=== PATIENT | male | born 1945 | race Caucasian/White ===

== ENCOUNTER 2020-12-27 20:31 | Emergency (ER) | payer MEDICARE, SELFPAY ==
[2020-12-27 20:32] VITALS: BP 200/75; PULSE 79; RESP 15; TEMP 36.6; O2SAT 97; BMI 31.1
--- NOTE | 2020-12-27 21:09 | ED.RN ---
SOCIAL WORK CONSULT PLACED BY THIS RN DUE TO REPORT FROM EMS. EMS STATES LIVING CONDITIONS ARE POOR, DIRTY. THE PATIENT HAS BEEN EATING FOOD AND WALKING TO NEIGHBOR HOUSES ASKING FOR MONEY FOR FOOD. PER EMS REPORT HIS DIABETIC MEDICATION IS . PT LIVES BY HIMSELF WITH HIS SMALL DOG. HIS ONLY FAMILY MEMBER IS HIS SISTER THAT IS IN A DETENTION. HE COULD BENEFIT FROM OTHER COMMUNITY RESOURCES IF AVAILABLE.
--- NOTE | 2020-12-27 21:43 | ED.RN ---
neighbor offered to assist in any way per ems. [phone] ana dow rn [id number]
--- NOTE | 2020-12-27 22:26 | ED.RN ---
pt was given water to drink. he took a medication from a none readable medication bottle. pt was request to not take any more medications until he is evaluated by ed dr. ana dow, rn [id number]
--- NOTE | 2020-12-27 23:11 | EKG12_ITS ---
Test Reason : GENERAL ILLNESS Blood Pressure : / mmHG Vent. Rate : 065 BPM Atrial Rate : 357 BPM P-R Int : 000 ms QRS Dur : 072 ms QT Int : 404 ms P-R-T Axes : 091 010 037 degrees QTc Int : 420 ms Atrial fibrillation Abnormal ECG Confirmed by FREIDA KEN, LAUREN ([id number]), assignment desk editor SARAH THOMAS ([id number]) on 01/01/2021 10:49:34 AM Referred By: VANIA Confirmed By:ALETHEA GUAN MD
--- NOTE | 2020-12-27 23:11 | EDS_ITS ---
HPI History of Present Illness Chief Complaint: General Illness Detail of Chief Complaint: Weakness and suspected hypoglycemic episode Narrative Narrative: Patient presents to the emergency department via EMS. Patient apparently had an episode of weakness where he felt like his blood sugar was dropping. He had his neighbor opened up a can of food for him and the neighbor called EMS. On EMS arrival he was feeling improved and they were to sign him off but police apparently concerned about his living conditions and wanted him evaluated. Patient has no complaints currently and states that he feels so well he could take the nurses out dancing. Patient has no concerns about his living conditions and is able to care for himself. Patient states that he ran out of his Metformin yesterday but has a prescription waiting at the pharmacy for him. He denies chest pain or shortness of breath. He denies recent illness. He has had his Covid vaccine. Prior similar symptoms: Yes PFSH PFSH Home Medications hydrocodone-acetaminophen 1 tab PO Q6H PRN PRN #20 tablet 06/26/15 [Rx Last Taken Unknown] carvedilol 3.125 mg DAILY 12/27/20 [History Last Taken Unknown] glimepiride 2 mg DAILY 12/27/20 [History Last Taken Unknown] lisinopril 20 mg DAILY 12/27/20 [History Last Taken Unknown] Allergy/AdvReac Type Severity Reaction Status Date / Time codeine AdvReac Upset Verified 12/27/20 20:31 Stomach Social History Smoking Status: Never smoker ROS ROS ED Constitutional Constitutional ED: Reports systems reviewed and no addt'l complaints, except as documented; Denies body ache(s), change in weight or chills Eyes Eyes: Denies acute decrease in peripheral vision, change in vision, double vision or loss of vision ENT ENT ED: Reports none; Denies ear pain, lip swelling, loss taste/smell, neck pain, otalgia or sore throat Cardiovascular Cardiovascular: Reports none; Denies abdominal pain, chest pain with activity, leg edema, lightheadedness, palpitations, rapid heart rate or syncope Respiratory/Chest Respiratory/Chest: Reports none; Denies change in mental status, dry cough, dyspnea, hemoptysis, shortness of breath at rest or shortness of breath with exertion Gastrointestinal Gastrointestinal: Reports none; Denies abdominal pain, change in stool character, diarrhea, hematemesis, hematochezia, melena, rectal bleeding or vomiting Genitourinary Genitourinary ED: Reports none; Denies abdominal discomfort, anuria, dysuria, genital pain or polyuria Musculoskeletal Musculoskeletal: Reports none; Denies arthralgias, back pain, difficulty walking, extremity pain, muscle weakness or myalgias Integumentary Reports none; Denies abscess or rash Neurologic Neurologic: Reports none and weakness; Denies abnormal gait, confusion, focal weakness, frequent falls, headache(s), loss of vision, numbness, paresthesias, radicular pain or vertigo Psychiatric Psychiatric: Reports systems reviewed and no addt'l complaints, except as documented and none; Denies behavioral changes, confusion, difficulty concentrating, hallucinations, suicidal ideation, tactile hallucinations or visual hallucinations Endocrine Endocrinology: Denies none, cold intolerance, excessive sweating, fatigue or heat intolerance Hematologic/Lymphatic Hematologic/Lymphatic: Reports none; Denies anemia, easy bleeding or easy bruising Allergic/Immunologic Allergic/Immunologic ED: Denies as per HPI, none, lip swelling, mouth swelling, throat swelling, tongue swelling or hives EXAM Physical Exam Const Vital Signs: 12/27/20 20:32 12/27/20 23:49 12/27/20 23:56 Temperature 97.8 F 97.4 F L Temperature Source Temporal Temporal Pulse Rate 79 74 Respiratory Rate 15 15 Respiratory Effort Normal Non-Labored Blood Pressure 200/75 H 194/80 H Blood Pressure Mean 116 118 Pulse Ox 97 99 Oxygen Delivery Method Room Air Room Air Positive well nourished and well developed General Appearance ED: well developed and NAD HEENT Reports TM's clear and moist mucous membranes normocephalic and atraumatic; Negative for trauma or tenderness Tympanic Membrane ED: Yes TM's clear Eyes PERRL and EOMs intact bilaterally General Eye ED: Negative for pale conjunctiva or scleral icterus Neck no lymphadenopathy, supple and no JVD General: Negative for tenderness Chest Wall inspection of chest normal and palpation of chest normal Chest: Negative for tenderness Resp normal respiratory effort and clear to auscultation bilaterally Effort and Inspection: Negative for respiratory distress or pain with movement Auscultation: Negative for rhonchi, wheezes or diminished lung sounds Cardio regular rate, regular rhythm, S1 normal heart sound, S2 normal heart sound and no murmurs Peripheral Pulses: pulses 2+ throughout GI normal to inspection, nondistended, normoactive bowel sounds, soft to palpation, non-tender, non-distended and no masses Back/Spine no CVA tenderness and no thoracic nor lumbar tenderness Extremity normal to inspection General Extremety ED: Negative for edema General Extremity: Negative for edema Neuro oriented x3, CN's II-XII intact bilaterally, no sensory deficits noted and gait normal Sensorium / Orientation: awake, alert, oriented to person, oriented to place and oriented to time Motor Exam: strength 5/5 throughout and strength abnormal Psych mental status grossly normal Skin no rashes or lesions noted and no wounds MDM MDM MDM Narrative Medical decision making narrative: Patient noted to have an elevated troponin. Patient noted to have hypernatremia and worsening renal function. I recommended admission for further cardiac evaluation. I suspect patient may be having a non-STEMI. His weakness this evening may be related to cardiac etiology. Patient is absolutely refusing admission. Patient is ANO x3 and understands my concerns and is refusing admission. I spent significant time attempting to co nvince the patient to be admitted and he continues to refuse. Lab Data Attestation: I reviewed the patient's lab results. Labs: Laboratory Results - last 24 hr 12/27/20 12/27/20 23:45 23:45 WBC 7.7 RBC 4.12 L Hgb 12.3 L Hct 38.6 L MCV 93.7 MCH 29.9 MCHC 31.9 L RDW Std Deviation 48.6 H RDW Coeff of Riddhi 14.1 Plt Count 258 MPV 10.0 Immature Gran % (Auto) 0.400 Neut % (Auto) 72.6 H Lymph % (Auto) 15.[address] [facility] % (Auto) 7.4 Eos % (Auto) 3.9 Baso % (Auto) 0.5 Absolute Neuts (auto) 5.6 Absolute Lymphs (auto) 1.17 Nucleated RBC % 0 Sodium 147 H Potassium 4.0 Chloride 115 H Carbon Dioxide 26.0 Anion Gap 6 BUN 24 H Creatinine 1.72 H Estim Creat Clear Calc 34.80 Est GFR (MDRD) Af Amer 50 L Est GFR (MDRD) Non-Af 41 L BUN/Creatinine Ratio 14.0 Glucose 163 H Calcium 9.1 Troponin I High Sens 141 H* EKG Initial EKG: Attestation: I personally reviewed and interpreted this EKG as follows: Comments: Sinus rhythm with a ventricular rate of 65 bpm with occasional PACs. Discharge Plan Triage Chief Complaint: General Illness ED Provider: Ysabel Phelps Dx/Rx/DC Orders Clinical Impression: Non-ST elevated myocardial infarction, Acute hypernatremia, Acute renal insufficiency Instructions: Heart Attack Dc, Warning Signs of a Heart Attack, ED Renal Insufficiency Prescriptions: No Action hydrocodone-acetaminophen 1 TABLET tablet 1 tab PO Q6H PRN PRN (Reason: Pain) Qty: 20 RF: 0 carvedilol 3.125 mg tablet 3.125 mg DAILY RF: 0 lisinopril 20 mg tablet 20 mg DAILY RF: 0 glimepiride 2 mg tablet 2 mg DAILY RF: 0 Primary Care Provider: Hitesh Brown Referrals: Hitesh Brown DO [Primary Care Provider] - As soon as possible Disposition Disposition: Against Medical Advice
--- NOTE | 2020-12-27 23:21 | EKG12_ITS ---
Test Reason : GENERAL ILLNESS Blood Pressure : / mmHG Vent. Rate : 069 BPM Atrial Rate : 069 BPM P-R Int : 178 ms QRS Dur : 072 ms QT Int : 398 ms P-R-T Axes : 093 016 051 degrees QTc Int : 426 ms Normal sinus rhythm Normal ECG No previous ECGs available Confirmed by CONSTANCE KEN, FILIBERTO ([id number]), deputy editor in chief SARAH THOMAS ([id number]) on 01/02/2021 9:47:34 AM Referred By: VANIA Confirmed By:FILIBERTO NOLASCO MD
[2020-12-27] MEDS: 0.9% Normal Saline 1,000 ML 150 ML IV (23:47)
[2020-12-27 23:49] VITALS: BP 194/80; PULSE 74; RESP 15; TEMP 36.3; O2SAT 99
--- NOTE | 2020-12-27 23:49 | ED.RN ---
Dr Alejandro aware of elevated BP - no new orders
[2020-12-27 23:51] LABS: Absolute Lymphocyte Count 1.17 X10^3/uL (0.83-4.51); Absolute Neutrophil Count 5.6 X10^3/uL (2.0-7.7); Basophil# 0.04 X10^3/uL; Basophil% 0.5 % (0-1); Eosinophils% 3.9 % (0-5); Hematocrit 38.6 % (40-54); Hemoglobin 12.3 g/dL (13.0-16.5); Lymphocyte # 1.17 X10^3/ul (0.83-4.51); Lymphocyte % 15.2 % (19-41); Mean Corp Hgb Conc 31.9 g/dL (32-36); Mean Corpuscular Hgb 29.9 pg (27.0-32.0); Mean Corpuscular Volume 93.7 fL (80-94); Monocyte# 0.57 X10^3/uL; Monocyte% 7.4 % (0-10); NRBC Flagged by Analyzer 0 % (0-5); Neutrophil % 72.6 % (47-70); Platelet Count 258 K/mm3 (150-450); RBC Distribution Width CV 14.1 % (11.6-14.6); RBC Distribution Width SD 48.6 fl (35.1-43.9); Red Blood Count 4.12 M/mm3 (4.6-6.2); White Blood Count 7.7 K/mm3 (4.4-11.0)
[2020-12-28 00:20] LABS: Anion Gap 6 (5-15); BUN 24 mg/dL (7-18); Calcium,Total 9.1 mg/dL (8.5-10.1); Chloride 115 mmol/L (98-107); Creatinine, Serum 1.72 mg/dL (0.70-1.30); EST Glomerular Filtration Rate 41 mL/min (>60); Est Glom Filt Rate - Afr Amer 50 mL/min (>60); Glucose 163 mg/dL (74-106); Sodium Level 147 mmol/L (136-145); Troponin-I HS 141 pg/mL (3.0-78.0)
--- NOTE | 2020-12-28 00:47 | ED.RN ---
patient still wants to leave [facility] and states he understands he is leaving at his own risk and can returnb if he changes his mind for the rest of his cardiac work-up that he has declined at this time. Papers signed and calling for a ride home now.
[2020-12-28 00:48] VITALS: BP 180/78; PULSE 88; RESP 17; O2SAT 98
--- NOTE | 2020-12-28 16:56 | CM.ED ---
CHRISTIE Note CHRISTIE received call from Adult Protective Services (APS) Worker Fernando. She said that they had received APS report from neighbor regarding patient and concerns that had been reported. CHRISTIE reviewed chart and as this information is part of an open ongoing investigation and for continuity of care this keno writer/runner updated Fernando that patient was discharged A[facility] and their were concerns regarding patient's medical condition including cardiology. CHRISTIE updated SW Lead Sophia Lawrence. Fernando sent HIPPA Letter to this keno writer/runner stating that information can be released to APS. CHRISTIE sent HIPPA letter to CHRISTIE Lead for her review. CHRISTIE left voice mail for Fernando asking for letter on APS letterhead advising that APS is involved and that the information to be released is for continuity of care in regards to a current open APS investigation. CHRISTIE left email for Lenore, ED social work assistant, updating her regarding this situation. Keyana FLANAGAN
== END 2020-12-28 00:51 | disposition left against medical advice (07) ==
PROVIDERS: Emergency Provider Emergency Medicine; PCP Family Medicine
DX: I21.4 Non-ST elevation (NSTEMI) myocardial infarction (principal); E87.0 Hyperosmolality and hypernatremia; N28.9 Disorder of kidney and ureter, unspecified
CPT/HCPCS: 80048; 84484; 85025; 93005; 96360; 99284; J7030; A4216

== ENCOUNTER 2021-08-30 01:46 | Inpatient (IN) | payer MEDICARE, SELFPAY ==
[2021-08-30] VITALS (14 sets, daily range): BP systolic 144–186; BP diastolic 53–86; PULSE 64–96; RESP 15–18; TEMP 35.9–37.2; O2SAT 92–98; BMI 25.9; BMI 24.3
--- NOTE | 2021-08-30 01:52 | EKG12_ITS ---
Test Reason : FALL Blood Pressure : / mmHG Vent. Rate : 064 BPM Atrial Rate : 064 BPM P-R Int : 190 ms QRS Dur : 078 ms QT Int : 424 ms P-R-T Axes : 078 027 037 degrees QTc Int : 437 ms Normal sinus rhythm Normal ECG Confirmed by FILIBERTO NOLASCO MD ([id number]), film editor SARAH THOMAS ([id number]) on 09/03/2021 10:11:38 AM Referred By: Confirmed By:FILIBERTO NOLASCO MD
--- NOTE | 2021-08-30 01:53 | RAD_ITS ---
EXAM: XR LEFT HIP WITH PELVIS WHEN PERFORMED, 2 OR 3 VIEWS CLINICAL INDICATION: Injury/Pain TECHNIQUE: Two or three views of the left hip with pelvis when performed. This report was created using [employer] report generation technology. COMPARISON: None. FINDINGS: BONES/JOINTS: Intertrochanteric left hip fracture. Moderate degenerative changes of the hips. No destructive or sclerotic lesions. Note that overlapping bowel shadows may however obscure fine detail. Sacroiliac joint is unremarkable. No widening of the pubic symphysis. SOFT TISSUES: Unremarkable. No soft tissue swelling or gas. RAD/HIP, UNI W/ Pelvis 2-3 Views IMPRESSION: Intertrochanteric left hip fracture. Electronically Signed: Ed Escobar MD at 2:54 EDT ,
--- NOTE | 2021-08-30 01:54 | ED.VIS.FALL ---
HPI HPI - Fall History of Present Illness Chief Complaint: Fall Detail of Chief Complaint: Fall injuring left hip Informant: patient and EMS Occured/Mechanism Occurred: Hours Mechanism/Context: Yes same level fall and Yes trip Narrative: Patient was walking and tripped Fall from Height (ft): Standing position Usually ambulates: Without assistance Pain/Injury Pain Location: lower extremity (Points to the left groin region) Current Severity: Mild Maximum Severity: Severe Worsened by: Any type of movement Relieved by: Nothing Associated Symptoms Associated Symptoms: Positive for Loss of function and Inability to ambulate; Negative for Parasthesias, Weakness, Loss of consciousness and Amnesia Narrative Narrative: Patient is a 76-year-old male with history of type 2 diabetes and hypertension who presents after mechanical fall. He arrived by ambulance. His left lower extremity is externally rotated and shortened. He complains of pain in the left inguinal area. He does report hitting his head. Is not on anticoagulant. He was not dazed and there is no history of loss of conscious. Denies headache. He denies nausea or vomiting. He denies neck pain. He denies paresthesia, anesthesia motors upper or lower extremity. He denies cardiac or respiratory symptoms. He denies GI symptoms. Tetanus Immunization: Unknown Prior similar symptoms: No Recent Illness/Hospitalization: No PFSH PFSH Home Medications lisinopril 20 mg DAILY 12/27/20 [History Last Taken Unknown] glimepiride 4 mg DAILY 08/30/21 [History Last Taken Unknown] metformin 1,000 mg BID 08/30/21 [History Last Taken Unknown] Allergy/AdvReac Type Severity Reaction Status Date / Time codeine AdvReac Upset Verified 08/30/21 01:53 Stomach Family History (Updated 08/30/21 @ 03:[address] Olayinka Browning MD) Other Diabetes Surgical History no surgical history no surgical history Social History household members: other details: Resides at the [facility] Smoking Status: Never smoker substance use type: does not use ROS ROS ED Constitutional Constitutional ED: Denies chills, fever(s), subjective or sweats Eyes Eyes: Denies blurry vision, change in vision or diplopia ENT ENT ED: Denies ear pain, rhinorrhea or sore throat Cardiovascular Cardiovascular: Denies chest pain, orthopnea or palpitations Respiratory/Chest Respiratory/Chest: Denies cough, dyspnea, dyspnea on exertion or orthopnea Gastrointestinal Gastrointestinal: Denies abdominal pain, diarrhea, melena, nausea or vomiting Genitourinary Genitourinary ED: Denies dysuria, hematuria or urinary frequency Musculoskeletal Musculoskeletal: Reports other Details: Left hip pain ; Denies arthralgias, back pain, myalgias or neck pain Integumentary Denies Abrasions or rash Neurologic Neurologic: Denies headache(s), paresthesias or weakness Endocrine Endocrinology: Denies polydipsia, polyphagia or polyuria Hematologic/Lymphatic Hematologic/Lymphatic: Denies easy bleeding or easy bruising EXAM Physical Exam Const Vital Signs: 08/30/21 01:47 Temperature 96.7 F L Temperature Source Temporal Pulse Rate 64 Respiratory Rate 16 Blood Pressure 182/73 H Blood Pressure Mean 109 Pulse Ox 98 Oxygen Delivery Method Room Air Positive well nourished, well developed and unkempt General Appearance ED: unkempt, well developed and NAD HEENT Reports normocephalic and TM's clear HEENT Narrative: There is no clinical finding of basal skull fracture. There is no septal deviation hematoma. atraumatic; Negative for hematoma Tympanic Membrane ED: Yes TM's clear Eyes PERRL and EOMs intact bilaterally General Eye ED: Yes other Other Details: There is no subconjunctival hemorrhage. ; Negative for pale conjunctiva or scleral icterus Neck full ROM, no lymphadenopathy and supple Chest Wall inspection of chest normal and palpation of chest normal Resp normal respiratory effort, no retractions and clear to auscultation bilaterally Cardio regular rate, regular rhythm, S1 normal heart sound, S2 normal heart sound and no murmurs GI non-tender, non-distended and no masses Auscultation: normoactive bowel sounds Palpation: soft Back/Spine no CVA tenderness Cervical Spine: Negative for cervical spine tenderness Thoracic Spine / Upper Back: Negative for thoracic spinal tenderness Extremity normal capillary refill, no joint enlargement, no clubbing, cyanosis or edema, no calf tenderness and no pedal edema; Negative for normal to inspection or full ROM Extremity Narrative: DP pulses palpable bilaterally. The left lower extremity is shortened and externally rotated. Attempt at movement causes him pain in the inguinal area and is severe. Neuro oriented x3, CN's II-XII intact bilaterally and no focal motor deficits [place] Coma Scale: document GCS findings Spontaneous Obeys Commands Oriented 15 Sensorium / Orientation: alert Psych mental status grossly normal and thought process normal Appearance: unkempt Skin Lesions: no lesions Rashes: no rashes MDM MDM MDM Narrative Medical decision making narrative: Clinically patient has a fractured hip. Will obtain x-ray to determine if this is a femoral neck or intertrochanteric fracture. Will obtain appropriate blood work and testing for preoperative risk ratification. He was typed and screened. Lab Data Attestation: I reviewed the patient's lab results. Lab results narrative: Coags is remarkable for hemoglobin 11.3. Prior hemoglobin was 12.1.. CBC is unremarkable. Basic metabolic panel reveals an elevated creatinine of 6.8 which is patient's baseline and glucose of 225 with a normal CO2 and anion gap Radiography Diagnostic Testing: Clinical Impression(s) from Imaging Studies Hip/Pelvis X-Ray 08/30/21 01:53 IMPRESSION: Intertrochanteric left hip fracture. Electronically Signed: Ed Escobar MD at 2:54 EDT , Chest X-Ray 08/30/21 02:25 IMPRESSION: Mild enlargement of the cardiac silhouette. Electronically Signed: Ed Escobar MD at 2:50 EDT , Three-view x-ray of the left hip reveals an intertrochanteric fracture. There is no subluxation dislocation of the hip joint. There is no other acute abnormalities. This was interpreted by me at 0236. Single view portable chest x-ray reveals borderline cardiomegaly. Perihilar region is unremarkable. Lung parenchyma is unremarkable. There is no effusion, infiltrate or pneumothorax. Osseous structures are unremarkable. Call was placed to Dr. Davis. EKG Initial EKG: Attestation: I personally reviewed and interpreted this EKG as follows: Interpretation: Sinus Rhythm (The EKG is normal. Ventricular rate is 64. DC interval is 190 ms. QRS duration 78 ms. QT duration 424 ms. [place] is normal.) Discharge Plan Triage Chief Complaint: Fall ED Provider: Pepe Blankenship Dx/Rx/DC Orders Clinical Impression: Closed left hip fracture, Hypertension, Type 2 diabetes mellitus, Chronic kidney insufficiency, Anemia, unspecified Primary Care Provider: Hitesh Brown Disposition Disposition: Acute Care Hospital [facility]
[2021-08-30] MEDS: Morphine 4 MG/ML Syringe IV ×2 (02:13→03:54)
[2021-08-30] MEDS: Ondansetron 4 MG/2 ML Vial IV (02:15)
--- NOTE | 2021-08-30 02:25 | RAD_ITS ---
EXAM: XR CHEST, 1 VIEW CLINICAL INDICATION: Preoperative clearance TECHNIQUE: Frontal view of the chest. This report was created using [employer] report generation technology. COMPARISON: None. FINDINGS: LUNGS AND PLEURAL SPACES: Unremarkable. No consolidation or edema. No pneumothorax. No effusion. HEART: Mild enlargement of the cardiac silhouette. MEDIASTINUM: Central airways and mediastinal contour are unremarkable. BONES/JOINTS: Degenerative changes of the spine. SOFT TISSUES: Unremarkable. RAD/Chest 1 View (Portable) IMPRESSION: Mild enlargement of the cardiac silhouette. Electronically Signed: Ed Escobar MD at 2:50 EDT ,
[2021-08-30 03:20] LABS: Absolute Lymphocyte Count 1.26 X10^3/uL (0.83-4.51); Absolute Neutrophil Count 6.3 X10^3/uL (2.0-7.7); Basophil# 0.03 X10^3/uL; Basophil% 0.4 % (0-1); Eosinophil# 0.41 X10^3/uL; Eosinophils% 4.8 % (0-5); Hematocrit 34.3 % (40-54); Hemoglobin 11.3 g/dL (13.0-16.5); Lymphocyte # 1.26 X10^3/ul (0.83-4.51); Lymphocyte % 14.8 % (19-41); Mean Corp Hgb Conc 32.9 g/dL (32-36); Mean Corpuscular Hgb 29.8 pg (27.0-32.0); Mean Corpuscular Volume 90.5 fL (80-94); Monocyte# 0.47 X10^3/uL; Monocyte% 5.5 % (0-10); NRBC Flagged by Analyzer 0 % (0-5); Neutrophil # 6.29 X10^3/uL (2.7-7.7); Neutrophil % 73.8 % (47-70); Platelet Count 230 K/mm3 (150-450); RBC Distribution Width CV 13.3 % (11.6-14.6); RBC Distribution Width SD 43.5 fl (35.1-43.9); Red Blood Count 3.79 M/mm3 (4.6-6.2); White Blood Count 8.5 K/mm3 (4.4-11.0)
--- NOTE | 2021-08-30 03:31 | PCM.HP.STD ---
HPI - General General Date of Admission: 08/30/21 HPI Narrative YASH WILCOX, is a 76 M with a significant history of hypertension, and diabetes who lives at the [facility] presented to the emergency department with a fall. Reportedly patient was going to use the bathroom at night to afternoon nanny on the day of presentation. He lost his balance and fell. He fell on his left side. He developed pain at the left hip after the fall. He report that at baseline he is able to walk by himself with no assistive device. [facility] Home Medications lisinopril 20 mg DAILY 12/27/20 [History Last Taken Unknown] glimepiride 4 mg DAILY 08/30/21 [History Last Taken Unknown] metformin 1,000 mg BID 08/30/21 [History Last Taken Unknown] Allergy/AdvReac Type Severity Reaction Status Date / Time codeine AdvReac Upset Verified 08/30/21 01:53 Stomach Family History Other Diabetes Surgical History no surgical history no surgical history Social History household members: other details: Resides at the [facility] Smoking Status: Never smoker substance use type: does not use ROS ROS Narrative Pertinent positives and pertinent negatives as noted in HPI. All other systems were reviewed and are negative. Vital Signs Vital Signs Vital Signs: 08/30/21 01:47 08/30/21 03:25 Temperature 96.7 F L 98.1 F Temperature Source Temporal Temporal Pulse Rate 64 72 Respiratory Rate 16 16 Blood Pressure 182/73 H 172/73 H Blood Pressure Mean 109 106 Pulse Ox 98 96 Oxygen Delivery Method Room Air Room Air Weight Weight: 77.6 kg Body Mass Index (BMI) 25.9 Physical Exam Narrative Physical exam: General: Well-nourished, well-developed. Head: Normocephalic, atraumatic, no tenderness Eyes: Vision is grossly intact. EOMI ENT, no trauma, moist mucous membranes, no rhinorrhea Neck: Nontender, full range of motion. CVS: Regular rate and rhythm. S1-S2 present. No murmur, gallop or rub. Respiratory : clear to auscultation bilaterally, chest wall nontender, no wheezing Abdomen: Soft, nontender, nondistended, normal bowel sounds, no masses : Deferred Back: Nontender, no CVA tenderness. Extremities: Tender left hip. Nontender right hip. No grossly visible trauma on bilateral lower extremities. Skin: Normal color, no trauma, abrasions Neuro: Alert, oriented, cranial nerves II through XII grossly intact. Psychiatry: Normal mood. Normal affect. Not depressed. Not anxious. Results Lab / Micro Data Result Diagrams: 08/30/21 03:05 08/30/21 03:05 Labs: Laboratory Results - last 24 hr 08/30/21 03:05: WBC 8.5, RBC 3.79 L, Hgb 11.3 L, Hct 34.3 L, MCV 90.5, MCH 29.8, MCHC 32.9, RDW Std Deviation 43.5, RDW Coeff of Riddhi 13.3, Plt Count 230, MPV 10.0, Immature Gran % (Auto) 0.700, Neut % (Auto) 73.8 H, Lymph % (Auto) 14.8 L, [place] % (Auto) 5.5, Eos % (Auto) 4.8, Baso % (Auto) 0.4, Absolute Neuts (auto) 6.3, Absolute Lymphs (auto) 1.26, Nucleated RBC % 0 Radiology Impression Hip/Pelvis X-Ray 08/30/21 01:53 IMPRESSION: Intertrochanteric left hip fracture. Electronically Signed: Ed Escobar MD at 2:54 EDT Reading Location ID and State: [address] [place] [address] Tel , Service support , Chest X-Ray 08/30/21 02:25 IMPRESSION: Mild enlargement of the cardiac silhouette. Electronically Signed: Ed Escobar MD at 2:50 EDT Reading Location ID and State: [facility] / [employer] Tel , Service support , Assessment & Plan Assessment/Plan (1) Closed left hip fracture: QUALIFIERS: Encounter type: initial encounter Qualified Code(s): S72.002A - Fracture of unspecified part of neck of left femur, initial encounter for closed fracture PLAN: Closed intertrochanteric left hip fracture. Hip/pelvis x-ray showed left intertrochanteric hip fracture. Hip/pelvis x-ray was visualized and independent interpreted and I agree radiology interpretation. Chest x-ray was visualized and independent interpreted. I agree with radiologist interpretation of mild enlargement of the cardiac silhouette. Emergent department doctor discussed the case with Dr. Davis. Inpatient consult for orthopedic surgery. Morphine IV and oxycodone as needed ordered. Tylenol as needed ordered. Bowel protocol and antiemetics IV ordered. Keep n.p.o. While n.p.o. lactated Ringer's ordered. Check vitamin D level and vitamin B12. Preoperative EKG unremarkable ACS NSQIP surgical risk calculator with below surgical risk for cardiopulmonary complications. PT and OT consult. Orthopedic consult. Hypertension Blood pressure is not within goal Lisinopril continued. As needed hydralazine ordered. Trend blood pressure and adjust blood pressure medications. Diabetes mellitus with nephropathy Patient with hyperglycemia on presentation Home glipizide and metformin held. Accu-Chek QA CHS with correction scale insulin ordered. CKD stage IIIb Stable Trend BMP. Chronic anemia Hemoglobin on presentation was 11.3. His hemoglobin on 12/27/2020 was 12.3. Stable Trend CBC DVT prophylaxis SCDs ordered Charges/Coding Visit Charges Inpatient E&M: 95457 Init Hosp L3
[2021-08-30 03:35] LABS: Prothrombin Time (Protime)PT. 12.8 SECONDS (11.7-14.9)
[2021-08-30 03:37] LABS: Anion Gap 6 (5-15); BUN 27 mg/dL (7-18); BUN/Creat Ratio 16.1 RATIO (10-20); Calcium,Total 8.9 mg/dL (8.5-10.1); Chloride 107 mmol/L (98-107); Creatinine, Serum 1.68 mg/dL (0.70-1.30); EST Glomerular Filtration Rate 42 mL/min (>60); Est Glom Filt Rate - Afr Amer 51 mL/min (>60); Estimated Creatinine Clearance 35.06 ml/min; Glucose 225 mg/dL (74-106); Sodium Level 139 mmol/L (136-145)
[2021-08-30] MEDS: Lactated Ringers 1,000 ML 60 ML IV ×2 (05:10→22:42)
[2021-08-30] MEDS: 0.9% Saline Lock 10 ML Syringe IV ×3 (05:10→15:42)
[2021-08-30] MEDS: Morphine 2 MG/ML Syringe IV ×3 (05:10→14:50)
[2021-08-30] MEDS: Insulin Lispro 100 UNIT/ML INSULN.PEN SC ×3 (06:13→22:46)
--- NOTE | 2021-08-30 06:37 | RAD_ITS ---
STUDY: Intraoperative Fluoroscopic series LEFT HIP REASON FOR EXAM: Male, 76 years old. ORIF, HIP, GAMMA NAIL TECHNIQUE: 11 fluoroscopic views of the hip. COMPARISON: None. FINDINGS: 83.3 seconds fluoroscopy time reported. 11 fluoroscopic images are provided evaluating the left hip during a open reduction internal fixation. The initial image demonstrates a fracture of the proximal left femur. There is progressive instrumentation with the final study demonstrating a orthopedic nail and intramedullary hakan transfixing the fracture. RAD/Hip 1 view with Pelvis IMPRESSION: Open reduction internal fixation of the left femur fracture in progress. Electronically Signed: Sammie Fulton MD at 4:49 EDT ,
--- NOTE | 2021-08-30 06:51 | CON.PCM.OR_ITS ---
HPI Consult Data Date of Consult: 08/30/21 HPI Narrative HPI Narrative: YASH WILCOX, is a 76 M who presents To [facility] emergency department after mechanical fall from standing height at the [facility] where he resides onto his left side. Denies any head injury or loss of consciousness. Reported no antecedent left hip or groin pain. Community ambulator without assistive device. Denies any associated injury. Reports pain is left hip otherwise denies any complaints. Denies fevers, chills, nausea vomiting, chest pain or shortness of breath. Past medical history significant for hypertension and diabetes mellitus. He states his blood sugar runs in the 200s typically. [facility] Medical History (Updated 08/30/21 @ 04:31 by Freddy Perez) Diabetes Hypertension Home Medications lisinopril 20 mg PO DAILY 12/27/20 [History Last Taken 08/29/21] glimepiride 4 mg PO DAILY 08/30/21 [History Last Taken 08/29/21] metformin 1,000 mg PO BID 08/30/21 [History Last Taken 08/29/21] Allergy/AdvReac Type Severity Reaction Status Date / Time codeine AdvReac Upset Verified 08/30/21 01:53 Stomach Family History Other Diabetes Surgical History no surgical history Social History household members: other details: Resides at the [facility] Smoking Status: Never smoker substance use type: does not use ROS ROS Narrative 12 point review of systems obtained, negative unless otherwise noted in HPI. Vital Signs Vital Signs Vital Signs: 08/30/21 01:47 08/30/21 03:25 08/30/21 03:46 Temperature 96.7 F L 98.1 F Temperature Source Temporal Temporal Pulse Rate 64 72 69 Respiratory Rate 16 16 15 Respiratory Effort Respiratory Depth Respiratory Pattern Blood Pressure 182/73 H 172/73 H 168/65 H Blood Pressure Mean 109 106 99 Blood Pressure Source Blood Pressure Position Blood Pressure Location Pulse Ox 98 96 95 Oxygen Delivery Method Room Air Room Air Room Air 08/30/21 04:19 08/30/21 04:26 Temperature 96.9 F L Temperature Source Temporal Pulse Rate 75 Respiratory Rate 18 Respiratory Effort Normal Respiratory Depth Normal Respiratory Pattern Normal Blood Pressure 185/80 H Blood Pressure Mean 115 Blood Pressure Source Monitor Blood Pressure Position Semi-Fowlers Blood Pressure Location Right Arm Pulse Ox 97 Oxygen Delivery Method Room Air Room Air Weight Weight: 160 lb 0.889 oz Body Mass Index (BMI) 24.3 Physical Exam Narrative General -A&Ox3, NAD, appears stated age. Vital signs stable, afebrile. Respiratory -normal work of breathing, no intercostal retractions. CV -pulses regular, brisk capillary refill ?4 limbs. Abdomen-soft, nontender, nondistended. No guarding, rigidity, rebound tenderness. Musculoskeletal/neurologic -full range of motion nontender throughout bilateral upper extremities, right lower extremity with full sensation and strength in all dermatomes and myotomes. No midline cervical tenderness. Left lower extremity-no obvious deformity. Pain with logroll of the left lower extremity. Nontender throughout the left knee femoral shaft, tibial shaft and left foot/ankle. Brisk capillary refill. Sensation intact light touch L3-S1 dermatomes. DF, PF, EHL intact. DP, PT 2+. Pelvis is stable, nontender. Skin is intact without lacerations, abrasions. No ecchymosis noted. Lab / Micro Data Result Diagrams: 08/30/21 03:05 08/30/21 03:05 Labs: Laboratory Results - last 24 hr 08/30/21 03:05: Blood Type O POSITIVE, Antibody Screen NEGATIVE 08/30/21 03:05: WBC 8.5, RBC 3.79 L, Hgb 11.3 L, Hct 34.3 L, MCV 90.5, MCH 29.8, MCHC 32.9, RDW Std Deviation 43.5, RDW Coeff of Riddhi 13.3, Plt Count 230, MPV 10.0, Immature Gran % (Auto) 0.700, Neut % (Auto) 73.8 H, Lymph % (Auto) 14.8 L, [place] % (Auto) 5.5, Eos % (Auto) 4.8, Baso % (Auto) 0.4, Absolute Neuts (auto) 6.3, Absolute Lymphs (auto) 1.26, Nucleated RBC % 0 08/30/21 03:05: PT 12.8, INR 1.0, APTT 24.0 L 08/30/21 03:05: Sodium 139, Potassium 4.0, Chloride 107, Carbon Dioxide 26.0, Anion Gap 6, BUN 27 H, Creatinine 1.68 H, Estim Creat Clear Calc 35.06, Est GFR (MDRD) Af Amer 51 L, Est GFR (MDRD) Non-Af 42 L, BUN/Creatinine Ratio 16.1, Glucose 225 H, Calcium 8.9 Radiology Impression Hip/Pelvis X-Ray 08/30/21 01:53 IMPRESSION: Intertrochanteric left hip fracture. Electronically Signed: Ed Escobar MD at 2:54 EDT Reading Location ID and State: [facility] / [employer] Tel , Service support , Chest X-Ray 08/30/21 02:25 IMPRESSION: Mild enlargement of the cardiac silhouette. Electronically Signed: Ed Escobar MD at 2:50 EDT Reading [facility] [employer] Tel , Service support , Assessment & Plan Assessment/Plan (1) Closed left hip fracture: QUALIFIERS: Encounter type: initial encounter Qualified Code(s): S72.002A - Fracture of unspecified part of neck of left femur, initial encounter for closed fracture PLAN: Patient sustained a left intertrochanteric proximal femur fracture. -Closed, neurovascularly intact -Isolated injury -Recommending surgical intervention in the form of left femur cephalomedullary nailing -I discussed the procedure-its risks, benefits and alternative. Risks include but are not limited to bleeding, infection, loss of life or limb, risk of anesthesia, persistent pain or disability, need for additional surgery, no nunion, malunion, failure of orthopedic hardware, neurovascular injury, DVT or PE. Patient expressed understanding these risks and wished proceed with surgery. -Maintenance IV fluids, clear liquid diet after midnight n.p.o. at 2 hours prior to surgery -Type and screen -2 g Ancef on-call to the OR -Bedrest, heel protectors -Plan to proceed with surgery later today when OR becomes available Thank you for this consultation.
[2021-08-30 07:05] LABS: Bedside Glucose 245 mg/dL (74-106)
[2021-08-30] MEDS: oxyCODONE 5 MG Tablet PO ×2 (07:53→12:09)
[2021-08-30] MEDS: Acetaminophen 500 MG Tablet 1000 MG PO ×2 (07:54→14:50)
[2021-08-30 08:12] LABS: AST(SGOT) 20 U/L (15-37); Alanine Aminotransfer ALT/SGPT 24 U/L (16-61); Albumin, Serum 3.1 g/dL (3.2-5.0); Alkaline Phosphatase 125 U/L (45-117); Anion Gap 7 (5-15); BUN 26 mg/dL (7-18); BUN/Creat Ratio 15.4 RATIO (10-20); Chloride 107 mmol/L (98-107); Creatinine, Serum 1.69 mg/dL (0.70-1.30); EST Glomerular Filtration Rate 42 mL/min (>60); Est Glom Filt Rate - Afr Amer 51 mL/min (>60); Estimated Creatinine Clearance 34.85 ml/min; Globulin 3.2 g/dL (2.2-4.2); Glucose 279 mg/dL (74-106); Potassium 4.4 mmol/L (3.5-5.1); Protein, Total 6.3 g/dL (6.4-8.2); Sodium Level 138 mmol/L (136-145)
[2021-08-30] MEDS: Lisinopril 20 MG Tablet PO (08:18)
[2021-08-30 08:30] LABS: Vitamin D,25 Hydroxy 29.2 ng/mL
[2021-08-30 08:34] LABS: Hemoglobin A1c 8.7 % (3.8-5.6)
[2021-08-30 11:33] LABS: Color, Urine Straw (Yellow); Glucose, Dipstick Normal (Normal); Ketone-Dipstick Negative (Negative); Leukocyte Esterase-Dipstick Negative /ul (Negative); Nitrite-Dipstick Negative (Negative); Occult Blood-Urine Negative /ul (Negative); Protein-Dipstick 30 mg/dl (Negative); Urine Bilirubin Dipstick Negative (Negative); Urine Clarity Clear (Clear); Urine Urobilinogen Normal (Normal)
[2021-08-30] MEDS: hydrALAZINE 20 MG/ML Vial 10 MG IV (12:33)
[2021-08-30 12:55] LABS: Bedside Glucose 324 mg/dL (74-106)
--- NOTE | 2021-08-30 13:33 | CPS ---
started by nursing
--- NOTE | 2021-08-30 13:34 | CPS ---
started by nursing
--- NOTE | 2021-08-30 15:20 | CHAPLAIN ---
Type of Pastoral Visit _x__ Initial Visit ___ Follow-up Visit ___ On-call Visit ___ General Patient Visit ___ Spiritual Assessment ___ Family Conference ___ Bereavement ___ Rapid Response ___ Code Blue ___ Other (describe below) Pastoral Care Referral From _x__ Patient ___ Family ___ Nurse ___ Physician ___ Automatic Embroidery Machine Tender ___ Aluminum Container Tester ___ Other (describe below) Sacrament/Intervention ___ Active listening ___ Anointing ___ Roman Catholic ___ Bereavement ___ Communion ___ Karen exploration ___ ___ Life review ___ Prayer ___ Reconciliation ___ Sacrament of Sick _x__ Supportive presence ___ Wedding ___ Other (describe below) Pastoral Comments patient is awake but drifts off to sleep during visit; pt states that he is having surgery for broken hip, admits that he is in discomfort and would like to be repositioned; assisted with call button and request for repositioning; pt welcomes a pre surgery prayer, pt drifts off to sleep again
--- NOTE | 2021-08-30 15:53 | CASEMGMT ---
Social Work Consult: prison Referral source: Dr. Arizmendi Met with patient in room. Introduced self and social worker psychiatric role. Patient agreeable to speak with this social worker psychiatric. This social worker psychiatric broached conversation about correction placement for patient. Patient currently lives at [facility]. This social worker psychiatric provided patient with list of correction facilities that are in network with patient insurance. Patient kept falling asleep during conversation. Patient to have surgery later today. This social worker psychiatric encouraged patient to look over list and social work will follow up with patient tomorrow on discharge plan. Patient is not sure of which correction. Patient only request is to stay local to [place] or somewhere in [place]. Social Work to continue to follow. Atif Vargas MSW, ALEJANDRO
[2021-08-30 18:20] LABS: Bedside Glucose 216 mg/dL (74-106)
--- NOTE | 2021-08-30 18:39 | CON.PCM.UR_ITS ---
Assessment & Plan Assessment/Plan (1) Urethral stricture unspecified: PLAN: Simple Terrell catheterization was attempted but not successful off to try with a dilator kit. HPI Consult Data Date of Consult: 08/30/21 HPI Narrative HPI Narrative: YASH WILCOX, is a 76 M who presents with a fractured left hip he has incontinence of urine because he is immobile. Nursing staff attempted to place a catheter I was consulted to see the patient regarding the catheter placement [facility] Medical History (Updated 08/30/21 @ 18:[address] Malvin Hsu MD) Diabetes Hypertension Home Medications lisinopril 20 mg PO DAILY 12/27/20 [History Last Taken 08/29/21] glimepiride 4 mg PO DAILY 08/30/21 [History Last Taken 08/29/21] metformin 1,000 mg PO BID 08/30/21 [History Last Taken 08/29/21] Allergy/AdvReac Type Severity Reaction Status Date / Time codeine AdvReac Upset Verified 08/30/21 01:53 Stomach Family History Other Diabetes Surgical History no surgical history Social History household members: other details: Resides at the [facility] Smoking Status: Never smoker substance use type: does not use ROS Constitutional Constitutional: Denies chills, fever(s) or malaise Eyes Eyes: Denies blurry vision or change in vision ENT HEENT: Reports none Cardiovascular Cardiovascular: Denies chest pain or palpitations Respiratory/Chest Respiratory/Chest: Denies cough or shortness of breath with exertion Gastrointestinal Gastrointestinal: Denies abdominal pain, constipation or diarrhea Musculoskeletal Musculoskeletal: Denies back pain, joint stiffness or joint swelling Integumentary Integumentary: Denies dry skin, jaundice, lesions or rash Neurologic Neurologic: Denies confusion, syncope or weakness Psychiatric Psychiatric: Reports none; Denies anxiety or depression Endocrine Endocrinology: Denies excessive sweating, fatigue or flushing Hematologic/Lymphatic Hematologic/Lymphatic: Denies anemia, easy bleeding or easy bruising Physical Exam Const alert and oriented x3 General Appearance: cooperative HEENT normocephalic, head/scalp atraumatic, EAC's normal and TM's normal bilaterally Eyes PERRL and EOMs intact bilaterally Pupil: sluggish Neck no lymphadenopathy, supple and no JVD General: trachea midline Lymph Lymphatic: no lymphadenopathy noted, lymphedema and lymphadenopathy Resp normal respiratory effort, normal air movement and clear to auscultation bilaterally Cardio regular rate, regular rhythm and peripheral pulses 2+ throughout GI soft to palpation, non-tender and non-distended Extremity normal capillary refill and no clubbing, cyanosis or edema General Extremity: no tenderness to palpation of joints or extremities Skin no rashes or lesions noted General Skin Exam: turgor normal Lesions: no lesions Rashes: no rashes Neuro CN's II-XII intact bilaterally Speech: speech normal Motor Exam: strength 5/5 throughout; Negative for general weakness Psych thought process normal, cooperative and affect normal Appearance: appropriate Lab / Micro Data Result Diagrams: 08/30/21 03:05 08/30/21 07:30 Labs: Laboratory Results - last 24 hr 08/30/21 03:05: Blood Type O POSITIVE, Antibody Screen NEGATIVE 08/30/21 03:05: WBC 8.5, RBC 3.79 L, Hgb 11.3 L, Hct 34.3 L, MCV 90.5, MCH 29.8, MCHC 32.9, RDW Std Deviation 43.5, RDW Coeff of Riddhi 13.3, Plt Count 230, MPV 10.0, Immature Gran % (Auto) 0.700, Neut % (Auto) 73.8 H, Lymph % (Auto) 14.8 L, [place] % (Auto) 5.5, Eos % (Auto) 4.8, Baso % (Auto) 0.4, Absolute Neuts (auto) 6.3, Absolute Lymphs (auto) 1.26, Nucleated RBC % 0 08/30/21 03:05: PT 12.8, INR 1.0, APTT 24.0 L 08/30/21 03:05: Sodium 139, Potassium 4.0, Chloride 107, Carbon Dioxide 26.0, Anion Gap 6, BUN 27 H, Creatinine 1.68 H, Estim Creat Clear Calc 35.06, Est GFR (MDRD) Af Amer 51 L, Est GFR (MDRD) Non-Af 42 L, BUN/Creatinine Ratio 16.1, Glucose 225 H, Calcium 8.9 08/30/21 03:05: Hemoglobin A1c 8.7 H 08/30/21 06:09: POC Glucose 245 H 08/30/21 07:30: Sodium 138, Potassium 4.4, Chloride 107, Carbon Dioxide 24.0, Anion Gap 7, BUN 26 H, Creatinine 1.69 H, Estim Creat Clear Calc 34.85, Est GFR (MDRD) Af Amer 51 L, Est GFR (MDRD) Non-Af 42 L, BUN/Creatinine Ratio 15.4, Glucose 279 H, Calcium 9.0, Total Bilirubin 0.30, AST 20, ALT 24, Alkaline P hosphatase 125 H, Total Protein 6.3 L, Albumin 3.1 L, Globulin 3.2, Albumin/Globulin Ratio 1.0 08/30/21 07:30: Vitamin D 25-Hydroxy 29.2 08/30/21 11:00: Urine Color Straw, Urine Clarity Clear, Urine pH 6.0, Ur Specific [place] 1.010, Urine Protein 30 H, Urine Glucose (UA) Normal, Urine Ketones Negative, Urine Occult Blood Negative, Urine Nitrite Negative, Urine Bilirubin Negative, Urine Urobilinogen Normal, Ur Leukocyte Esterase Negative 08/30/21 12:03: POC Glucose 324 H 08/30/21 17:04: POC Glucose 216 H Radiology Impression Hip/Pelvis X-Ray 08/30/21 01:53 IMPRESSION: Intertrochanteric left hip fracture. Electronically Signed: Ed Escobar MD at 2:54 EDT Reading Location ID and State: [address] [place] [address] Tel , Service support , Chest X-Ray 08/30/21 02:25 IMPRESSION: Mild enlargement of the cardiac silhouette. Electronically Signed: Ed Escobar MD at 2:50 EDT ,
--- NOTE | 2021-08-30 18:41 | PCM.OPRPT ---
Report of Operation Date of Procedure: 08/30/21 Pre-Operative Diagnosis: Urethral stricture Post-Operative Diagnosis: Dilation urethral stricture Surgery/Procedure Performed:: Placement of Schumacher catheter 16 Korean Description of Surgical Findings:: Patient was a to have surgery for his hip the penis was prepped and draped in usual sterile fashion I inserted inserted lidocaine jelly into the urethra through the kit and numbed the urethra I then used a Glidewire to advanced past the urethral stricture under manual guidance. Once this was through then I used the dilators in the kit to dilate the urethral stricture and then over this I placed a 16 Korean catheter into the bladder clear return of yellow urine 10 cc in the balloon. The patient will the now released to orthopedic surgery to proceed with their hip surgery. Surgeon: nikky Type of Anesthesia: Local Drains: 16 fr schumacher Admit VTE Documentation VTE Present on Admission: No VTE Mechan Device Prophylaxis: SCD's VTE Pharm Prophylaxis ordered?: No
[2021-08-30] MEDS: Cefazolin 2 GM in 0.9% Normal Saline 100 ML IV (19:35)
--- NOTE | 2021-08-30 21:06 | OP.PCM_ITS ---
Report of Operation Date of Procedure: 08/30/21 Description of Surgical Findings:: Preoperative diagnosis: Left int ertrochanteric proximal femur fracture Postoperative diagnosis: Left intertrochanteric proximal femur fracture Procedure: Treatment of intertrochanteric hip fracture with intramedullary nail left femur Surgeon: Kervin Davis DO Anesthesia: General endotracheal Anesthesiologist: Dr. Rosario Complications: None Drains: None Estimated blood loss: 100 cc Urinary output: None recorded IV fluids: Per anesthesia record Specimens: None Surgical implants: [place] Gamma3 Cephalomedullary Nail 125 degree 11 mm x 400 mm left, 10.5 mm x 110 mm lag screw, Interlocking screws size 5 mm x 60 mm, 5 mm x 47.5 mm Surgical indications: This is a 76 male who presents presented to [facility] emergency department after a mechanical fall last evening. Patient resides at the [facility] He was brought to [facility] emergency department where x-rays in the emergency department revealed a left comminuted intertrochanteric proximal femur fracture. Or thopedics was consulted for surgical recommendations.I recommended cephalomedullary nail fixation of her left intertrochanteric proximal femur fracture. He was admitted and preoperatively optimized by the hospitalist service. I discussed the procedure with the patient. The risks, benefits, alternatives to procedure reviewed with the patient. The risks of the surgery included bleeding, infection, loss of life or limb, malunion, nonunion, damage to vital structures, neurovascular injury, failure of orthopedic hardware, need for additional surgery, persistent pain or disability, risk of anesthesia. The patient expressed understanding of these risks and agreed to proceed with surgery. Blood consent was also obtained. Description of procedure: Patient was seen in preoperative holding area. He was identified by name, medical record number, date of . The operative extremity was marked with a surgical marker. We confirmed informed consent with the patient and questions were answered to his satisfaction. Patient was brought to the operative suite, and general anesthesia was induced on his hospital bed. Endotracheal tube was secured. After adequate anesthesia, patient was transferred to a fracture table with all bony prominences being well-padded. A perineal post was placed to secure the patient on the table. We then applied a ski boot which was well-padded to the operative extremity. The well leg was dropped into extension and secured to the axial post of the fracture table with a pillow and Coban. The left arm was brought across patient's chest with a blanket on her chest. We then performed a closed reduction maneuver with external rotation, traction, internal rotation and adduction. Fluoroscopic images were obtained. Fracture appeared to be acceptably reduced following closed reduction. We then prepped and draped the left lower extremity in normal, sterile orthopedic fashion. A timeout was performed with all parties in attendance in agreement with the side, site, and operation be performed. 2 g Ancef was administered prior to incision. No concerns were voiced and we elected to proceed. I first used fluoroscopy to katlyn the level of the fracture and planned incision for insertion of the cephalomedullary nail device. In line with the long axis of the femur, 4 fingerbreadths proximal to the tip of the greater trochanter, a full-thickness skin incision was planned.. Skin was sharply incised with 10 blade scalpel, carried into the subcutaneous tissues. The IT band was encountered and split in planned trajectory of the nail placement. The greater trochanter was then able to be palpated digitally. I then placed a threaded guidewire just medial to the tip of the greater trochanter and in the anterior third of it on the lateral. Opening reamer was then placed over top of the guidewire after placement was confirmed on C arm. A ball-tipped guidewire then was passed into the intramedullary canal after reamer was removed. We used C arm to confirm our placement within the bone. We then sequentially reamed to a final diameter of 12.5 mm using flexible reamers. Reduction was again confirmed. Depth gauge was used to measure the length of the ball-tipped guidewire from the superior pole of patella to be 400 mm. Reamers were removed. Nail was assembled on the back table. We placed it over the ball-tipped guidewire and impacted to an appropriate depth. Rotation was confirmed on the lateral. Drill sleeve was placed through the targeting guide. We drilled the pin for the lag screw at an appropriate position and depth, tip to apex distance less than 25 mm on AP and lateral combined. Depth gauge was used to measure the length of the screw, 110 mm. We then used the cannulated drill to drill to an appropriate depth. Drill was removed, drill pin left in place. Lag screw was placed over top of the drill pin and tightened to an appropriate depth. Setscrew was then placed and tightened, and then turned back a quarter turn to allow the lag screw to slide. We then turned our attention distally to insert 2 interlocking screws via perfect [place] technique. C-arm was brought in perpendicular to the limb to o btain perfect [place] images. Stab incisions were made along the lateral distal aspect of the femur. I drilled bicortically ensuring passage through the interlocking slots of the nail. Depth gauge was used to measure length of interlocking screws. Interlocking screws were then placed with excellent cortical purchase. Appropriate positioning and size were confirmed on orthogonal fluoroscopy. Instruments were removed as well as the outrigger for the nail. Final fluoroscopic images were obtained at the hip, which demonstrated a stable construct with appropriate alignment. I then irrigated the wounds copiously with normal saline solution. Hemostasis was excellent at this point. I then closed the deeper layers, IT band with 0 Vicryl. Intradermal buried stitches of 2-0 Vicryl were utilized and skin finally reapproximated with skin toyin. Sterile compression dressing of Xeroform, 4 x 4's, and Tegaderm was applied. Patient tolerated procedure well without complication. He was transferred back to his hospital bed and subsequently to PACU in stable condition. Intraoperative medications: 2 g Ancef IV Post Operative Plan: Weightbearing: Weightbearing as tolerated left lower extremity with a walker Antibiotics: Ancef 2 g x 3 doses postoperatively, 1 dose given preoperatively DVT Prophylaxis: Aspirin 81 mg twice daily to start tomorrow morning Terrell: None Dressing: Dry sterile dressing changes daily and as needed for saturation X-Rays: 2 weeks postop in the office Follow-up: 2 weeks post-operatively with me in the office
[2021-08-30 21:36] LABS: Bedside Glucose 185 mg/dL (74-106)
[2021-08-30 22:56] LABS: Bedside Glucose 188 mg/dL (74-106)
[2021-08-31] VITALS (7 sets, daily range): BP systolic 126–167; BP diastolic 56–98; PULSE 85–99; RESP 16–18; TEMP 36.7–37.6; O2SAT 92–97
[2021-08-31] MEDS: Morphine 2 MG/ML Syringe IV ×2 (02:33→09:20)
[2021-08-31] MEDS: Cefazolin 2 GM in 0.9% Normal Saline 100 ML IV ×3 (02:35→19:38)
[2021-08-31] MEDS: Acetaminophen 500 MG Tablet 1000 MG PO ×3 (05:30→22:13)
[2021-08-31] MEDS: oxyCODONE 5 MG Tablet PO ×4 (05:38→22:14)
[2021-08-31] MEDS: Insulin Lispro 100 UNIT/ML INSULN.PEN SC ×4 (05:42→22:18)
[2021-08-31 05:50] LABS: Absolute Lymphocyte Count 0.71 X10^3/uL (0.83-4.51); Absolute Neutrophil Count 11.5 X10^3/uL (2.0-7.7); Basophil# 0.03 X10^3/uL; Basophil% 0.2 % (0-1); Eosinophil# 0.05 X10^3/uL; Eosinophils% 0.4 % (0-5); Hematocrit 30.4 % (40-54); Lymphocyte # 0.71 X10^3/ul (0.83-4.51); Lymphocyte % 5.3 % (19-41); Mean Corp Hgb Conc 32.9 g/dL (32-36); Mean Corpuscular Volume 91.3 fL (80-94); Mean Platelet Vol. 10.1 fl (6.2-12.0); Monocyte# 0.96 X10^3/uL; Monocyte% 7.2 % (0-10); NRBC Flagged by Analyzer 0 % (0-5); Neutrophil # 11.51 X10^3/uL (2.7-7.7); Neutrophil % 86.3 % (47-70); Platelet Count 200 K/mm3 (150-450); RBC Distribution Width CV 13.6 % (11.6-14.6); RBC Distribution Width SD 45.1 fl (35.1-43.9); Red Blood Count 3.33 M/mm3 (4.6-6.2); White Blood Count 13.3 K/mm3 (4.4-11.0)
[2021-08-31 06:12] LABS: Anion Gap 5 (5-15); BUN 23 mg/dL (7-18); BUN/Creat Ratio 13.9 RATIO (10-20); Chloride 106 mmol/L (98-107); Creatinine, Serum 1.66 mg/dL (0.70-1.30); EST Glomerular Filtration Rate 43 mL/min (>60); Est Glom Filt Rate - Afr Amer 52 mL/min (>60); Estimated Creatinine Clearance 35.48 ml/min; Glucose 211 mg/dL (74-106); Potassium 4.1 mmol/L (3.5-5.1); Sodium Level 137 mmol/L (136-145)
--- NOTE | 2021-08-31 07:45 | PN.ORTHO_ITS ---
Subjective Subjective Patient seen and examined. Denies any new complaints. He states his pain is well controlled at rest. Denies fevers, chills, nausea vomiting, chest pain or shortness of breath. Has not been out of bed yet. Objective Data Objective Data Vital Signs: Vital Signs Temp Pulse Resp BP Pulse Ox 98.6 F 99 18 151/98 H 93 08/31/21 05:46 08/31/21 05:46 08/31/21 05:46 08/31/21 05:46 08/31/21 05:46 Oxygen Flow Rate (L/min) 2 Oxygen Delivery Method Room Air Weight: 160 lb 0.889 oz Body Mass Index (BMI) 24.3 Intake & Output: Intake and Output for Last 24 Hours 08/29/21 08/30/21 08/31/21 23:59 23:59 23:59 Intake Total 1140 / 1140 493 / 493 Output Total 950 / 1200 850 / 850 Balance 190 / -60 -357 / -357 Lab / Micro Data Result Diagrams: 08/31/21 05:29 08/31/21 05:29 Labs: Laboratory Results - last 24 hr 08/30/21 03:05: Hemoglobin A1c 8.7 H 08/30/21 07:30: Sodium 138, Potassium 4.4, Chloride 107, Carbon Dioxide 24.0, Anion Gap 7, BUN 26 H, Creatinine 1.69 H, Estim Creat Clear Calc 34.85, Est GFR (MDRD) Af Amer 51 L, Est GFR (MDRD) Non-Af 42 L, BUN/Creatinine Ratio 15.4, Glucose 279 H, Calcium 9.0, Total Bilirubin 0.30, AST 20, ALT 24, Alkaline Phosphatase 125 H, Total Protein 6.3 L, Albumin 3.1 L, Globulin 3.2, Albumin/Globulin Ratio 1.0 08/30/21 07:30: Vitamin D 25-Hydroxy 29.2 08/30/21 11:00: Urine Color Straw, Urine Clarity Clear, Urine pH 6.0, Ur Specific [place] 1.010, Urine Protein 30 H, Urine Glucose (UA) Normal, Urine Ketones Negative, Urine Occult Blood Negative, Urine Nitrite Negative, Urine Bilirubin Negative, Urine Urobilinogen Normal, Ur Leukocyte Esterase Negative 08/30/21 12:03: POC Glucose 324 H 08/30/21 17:04: POC Glucose 216 H 08/30/21 21:31: POC Glucose 185 H 08/30/21 22:45: POC Glucose 188 H 08/31/21 05:29: WBC 13.3 H, RBC 3.33 L, Hgb 10.0 L, Hct 30.4 L, MCV 91.3, MCH 30.0, MCHC 32.9, RDW Std Deviation 45.1 H, RDW Coeff of Riddhi 13.6, Plt Count 200, MPV 10.1, Immature Gran % (Auto) 0.600, Neut % (Auto) 86.3 H, Lymph % (Auto) 5.3 L, [place] % (Auto) 7.2, Eos % (Auto) 0.4, Baso % (Auto) 0.2, Absolute Neuts (auto) 11.5 H, Absolute Lymphs (auto) 0.71 L, Nucleated RBC % 0 08/31/21 05:29: Sodium 137, Potassium 4.1, Chloride 106, Carbon Dioxide 26.0, Anion Gap 5, BUN 23 H, Creatinine 1.66 H, Estim Creat Clear Calc 35.48, Est GFR (MDRD) Af Amer 52 L, Est GFR (MDRD) Non-Af 43 L, BUN/Creatinine Ratio 13.9, Glucose 211 H, Calcium 8.0 L Radiography Diagnostic Testing: Radiology Impression Hip/Pelvis X-Ray 08/30/21 06:37 IMPRESSION: Open reduction internal fixation of the left femur fracture in progress. Electronically Signed: Sammie Fulton MD at 4:49 EDT Reading Location ID and State: [facility] / [place] Tel , Service support , Physical Exam Narrative General - A&Ox3, NAD. VSS/AF Left lower extremity -incisional dressing C/D/I. SILT Sural, Saphenous, SPN, DPN, Tibial N. distributions. DP, PT 2+. BCR. DF, PF, EHL 5/5. No calf TTP. Assessment & Plan Assessment/Plan (1) Closed left hip fracture: QUALIFIERS: Encounter type: initial encounter Qualified Code(s): S72.002A - Fracture of unspecified part of neck of left femur, initial encounter for closed fracture PLAN: POD#1 s/p left femur CMN - Pain control - Medicine following for medical management - PT/OT -weightbearing as tolerated left lower extremity - DVT PPX -aspirin 81 mg twice daily x4 weeks - Case management - D/C planning, likely will require placement -Patient doing well from orthopedic standpoint. I will sign off. Please do not hesitate to call if any questions or concerns arise. Follow-up in 2 weeks for staple removal and x-rays. Dry sterile dressing changes daily.
[2021-08-31 08:24] LABS: Vitamin B12 387 pg/mL (211-911); Vitamin D,25 Hydroxy 23.5 ng/mL
--- NOTE | 2021-08-31 09:08 | PN.HOSP_ITS ---
Subjective Subjective Doing well, no issues overnight. He is little bit touch on the left foot but states that his pain is improving. He is able to move his feet and has sensation. His care was little bit complicated yesterday with the need to place a Terrell he did have a urethral stricture so this was done in the OR Objective Data Objective Data Vital Signs: Vital Signs Temp Pulse Resp BP Pulse Ox 98.6 F 99 18 151/98 H 92 08/31/21 05:46 08/31/21 05:46 08/31/21 05:46 08/31/21 05:46 08/31/21 07:28 Oxygen Flow Rate (L/min) 2 Oxygen Delivery Method Room Air Weight: 160 lb 0.889 oz Body Mass Index (BMI) 24.3 Intake & Output: Intake and Output for Last 24 Hours 08/30/21 08/31/21 09/01/21 03:59 03:59 03:59 Intake Total 1483 / 1483 150 / 150 Output Total 1200 / 1200 600 / 600 Balance 283 / 283 -450 / -450 Lab / Micro Data Result Diagrams: 08/31/21 05:29 08/31/21 05:29 Labs: Laboratory Results - last 24 hr 08/30/21 11:00: Urine Color Straw, Urine Clarity Clear, Urine pH 6.0, Ur Specific [place] 1.010, Urine Protein 30 H, Urine Glucose (UA) Normal, Urine Ketones Negative, Urine Occult Blood Negative, Urine Nitrite Negative, Urine Bilirubin Negative, Urine Urobilinogen Normal, Ur Leukocyte Esterase Negative 08/30/21 12:03: POC Glucose 324 H 08/30/21 17:04: POC Glucose 216 H 08/30/21 21:31: POC Glucose 185 H 08/30/21 22:45: POC Glucose 188 H 08/31/21 05:29: WBC 13.3 H, RBC 3.33 L, Hgb 10.0 L, Hct 30.4 L, MCV 91.3, MCH 30.0, MCHC 32.9, RDW Std Deviation 45.1 H, RDW Coeff of Riddhi 13.6, Plt Count 200, MPV 10.1, Immature Gran % (Auto) 0.600, Neut % (Auto) 86.3 H, Lymph % (Auto) 5.3 L, [place] % (Auto) 7.2, Eos % (Auto) 0.4, Baso % (Auto) 0.2, Absolute Neuts (auto) 11.5 H, Absolute Lymphs (auto) 0.71 L, Nucleated RBC % 0 08/31/21 05:29: Sodium 137, Potassium 4.1, Chloride 106, Carbon Dioxide 26.0, Anion Gap 5, BUN 23 H, Creatinine 1.66 H, Estim Creat Clear Calc 35.48, Est GFR (MDRD) Af Amer 52 L, Est GFR (MDRD) Non-Af 43 L, BUN/Creatinine Ratio 13.9, Glucose 211 H, Calcium 8.0 L 08/31/21 05:29: Vitamin B12 387, Vitamin D 25-Hydroxy 23.5 Radiography Diagnostic Testing: Radiology Impression Hip/Pelvis X-Ray 08/30/21 06:37 IMPRESSION: Open reduction internal fixation of the left femur fracture in progress. Electronically Signed: Sammie Fulton MD at 4:49 EDT Reading Location ID and State: [facility] / [place] Tel , Service support , Physical Exam Const alert, oriented x3 and no apparent distress General Appearance: cooperative HEENT normocephalic and moist oral mucous membranes Eyes PERRL, EOMs intact bilaterally and conjunctivae normal Neck supple and no JVD Resp normal respiratory effort, no retractions and no use of accessory muscles Auscultation: diminished lung sounds; Negative for crackles, rales, rhonchi or wheezes Cardio regular rate, regular rhythm, S1 normal heart sound, S2 normal heart sound and no murmurs GI soft to palpation, non-tender and non-distended; Negative for hepatosplenomegaly Extremity no clubbing, cyanosis or edema Skin no rashes or lesions noted Neuro no focal motor deficits and no sensory deficits noted Psych affect normal Appearance: appropriate Assessment & Plan Assessment/Plan (1) Closed left hip fracture: QUALIFIERS: Encounter type: initial encounter Qualified Code(s): S72.002A - Fracture of unspecified part of neck of left femur, initial encounter for closed fracture PLAN: 1. Closed intertrochanteric left hip fracture status postrepair 08/30/2021/urethral stricture status post cystoscopy and Terrell placement under anesthesia ? Appreciate urology's assistance ? Continue with PT/OT and pain medication sex life?we will evaluate for possible need of SNF placement as he does live at the [facility] 2. HTN ? Blood pressure is stable ? Continue with his home lisinopril ? We will continue to monitor make adjustments as necessary 3. DM2 with CKD stage IIIb ? Hold his home metformin and glimepiride ? Continue with sliding scale insulin ? Accu-Cheks AC at bedtime ? We will monitor and make adjustments as necessary ? Renal function appears to be at baseline 4. Anemia of chronic disease ? Due to his diabetic nephropathy and CKD ? Hemoglobin is stable I do anticipate a drop after surgery ? We will continue to monitor DVT: SCDs Charges/Coding Visit Charges Inpatient E&M: 67562 Subs Hosp L2
[2021-08-31] MEDS: Lisinopril 20 MG Tablet PO (10:29)
[2021-08-31] MEDS: Calcium Carbonate 500 MG Tablet PO ×3 (10:29→17:18)
[2021-08-31 11:02] LABS: Bedside Glucose 214 mg/dL (74-106)
--- NOTE | 2021-08-31 11:14 | CASEMGMT ---
BRENDA FLOREZ NOTE: BRENDA FLOREZ to room. Reviewed list of SNF's w/pt. Pt states [facility] is [facility]. 2nd choice is [facility]. Pt states he has a employment evaluator/case manager, Fernando. Yolie SORIANO, made aware of above. Pt states he is painful and would like to return to bed. Staff notified. Andrew GUAJARDO RN, CM
--- NOTE | 2021-08-31 11:28 | CASEMGMT ---
Addendum entered by Yolie Gonzalez 08/31/21 12:30: Social Work Referral did not go through. SW emailed referral to Tiana at [facility], will await response. ALEJANDRO Dougherty Original Note: Social Work Pt would like [facility] or [facility]. CHRISTIE called [facility], spoke w/Tiana, referral faxed. SW will continue to follow. ALEJANDRO Dougherty
[2021-08-31 12:45] LABS: Bedside Glucose 301 mg/dL (74-106)
--- NOTE | 2021-08-31 15:18 | CASEMGMT ---
Addendum entered by Yolie Gonzalez 08/31/21 16:20: Social Work SW spoke w/Padmini at [facility], they can take pt and will start precert. She does not anticipate they will get precert but she will let SW know if it comes through. SW spoke w/pt, let him know [facility] does not have beds but [facility] can take him and started precert. SW explained it is unlikely he will be discharged before Friday due to precert but if it comes through SW will let him know. Pt states understanding and is agreeable. ALEJANDRO Dougherty Original Note: Social Work SW spoke w/Perri at [facility], they cannot take pt as they will not have a bed. SW called [facility] and faxed referral. SW attempted to let pt know, he is sleeping. SW will continue to follow. ALEJANDRO Dougherty
[2021-08-31] MEDS: Lactated Ringers 1,000 ML 60 ML IV (15:23)
[2021-08-31 17:26] LABS: Bedside Glucose 183 mg/dL (74-106)
[2021-08-31] MEDS: 0.9% Saline Lock 10 ML Syringe IV (22:13)
[2021-08-31 23:31] LABS: Bedside Glucose 195 mg/dL (74-106)
[2021-09-01] VITALS (9 sets, daily range): BP systolic 146–171; BP diastolic 61–95; PULSE 89–115; RESP 18–20; TEMP 36.9–37.7; O2SAT 93–98
[2021-09-01] MEDS: oxyCODONE 5 MG Tablet PO ×3 (04:41→22:09)
[2021-09-01] MEDS: Acetaminophen 500 MG Tablet 1000 MG PO ×3 (04:42→22:09)
[2021-09-01 06:42] LABS: Absolute Lymphocyte Count 0.68 X10^3/uL (0.83-4.51); Absolute Neutrophil Count 8.6 X10^3/uL (2.0-7.7); Basophil# 0.04 X10^3/uL; Basophil% 0.4 % (0-1); Eosinophil# 0.26 X10^3/uL; Eosinophils% 2.5 % (0-5); Hematocrit 27.6 % (40-54); Lymphocyte # 0.68 X10^3/ul (0.83-4.51); Lymphocyte % 6.5 % (19-41); Mean Corp Hgb Conc 32.6 g/dL (32-36); Mean Corpuscular Hgb 29.8 pg (27.0-32.0); Mean Corpuscular Volume 91.4 fL (80-94); Mean Platelet Vol. 10.3 fl (6.2-12.0); Monocyte# 0.87 X10^3/uL; Monocyte% 8.3 % (0-10); NRBC Flagged by Analyzer 0 % (0-5); Neutrophil # 8.61 X10^3/uL (2.7-7.7); Neutrophil % 81.8 % (47-70); Platelet Count 171 K/mm3 (150-450); RBC Distribution Width CV 13.7 % (11.6-14.6); RBC Distribution Width SD 45.7 fl (35.1-43.9); Red Blood Count 3.02 M/mm3 (4.6-6.2); White Blood Count 10.5 K/mm3 (4.4-11.0)
[2021-09-01 07:03] LABS: Anion Gap 6 (5-15); BUN 21 mg/dL (7-18); BUN/Creat Ratio 13.7 RATIO (10-20); Calcium,Total 8.3 mg/dL (8.5-10.1); Chloride 109 mmol/L (98-107); Creatinine, Serum 1.53 mg/dL (0.70-1.30); EST Glomerular Filtration Rate 47 mL/min (>60); Est Glom Filt Rate - Afr Amer 57 mL/min (>60); Glucose 159 mg/dL (74-106); Potassium 3.9 mmol/L (3.5-5.1); Sodium Level 139 mmol/L (136-145)
[2021-09-01] MEDS: Insulin Lispro 100 UNIT/ML INSULN.PEN SC ×4 (07:07→22:10)
[2021-09-01] MEDS: Lactated Ringers 1,000 ML 60 ML IV (07:50)
[2021-09-01 08:00] LABS: Bedside Glucose 154 mg/dL (74-106)
--- NOTE | 2021-09-01 08:53 | CASEMGMT ---
Social Work Pt had mentioned to case management that he has an outside child support case officer named Fernando. SW checked with [employer] to see if he has an open case, he does not at this time. His child support case officer is Fernando through [employer], and he is helping pt to find housing. ALEJANDRO Dougherty
[2021-09-01] MEDS: Calcium Carbonate 500 MG Tablet PO ×3 (09:31→18:24)
[2021-09-01] MEDS: Lisinopril 20 MG Tablet PO (09:33)
[2021-09-01] MEDS: Senna/Docusate Sodium 1 Tablet 2 TABLET PO (09:52)
--- NOTE | 2021-09-01 10:32 | PN.HOSP_ITS ---
Subjective Subjective Doing well, pain is improving. Continue with PT/OT no issues overnight. Objective Data Objective Data Vital Signs: Vital Signs Temp Pulse Resp BP Pulse Ox 98.6 F 91 18 146/62 H 94 09/01/21 09:36 09/01/21 09:36 09/01/21 09:36 09/01/21 09:36 09/01/21 09:36 Oxygen Flow Rate (L/min) 3 Oxygen Delivery Method Room Air Weight: 160 lb 0.889 oz Body Mass Index (BMI) 24.3 Intake & Output: Intake and Output for Last 24 Hours 08/31/21 09/01/21 09/02/21 03:59 03:59 03:59 Intake Total 1483 / 1483 765 / 765 650 / 650 Output Total 1200 / 1200 1295 / 1295 250 / 250 Balance 283 / 283 -530 / -530 400 / 400 Lab / Micro Data Result Diagrams: 09/01/21 06:04 09/01/21 06:04 Labs: Laboratory Results - last 24 hr 08/31/21 05:41: POC Glucose 214 H 08/31/21 12:20: POC Glucose 301 H 08/31/21 17:17: POC Glucose 183 H 08/31/21 22:06: POC Glucose 195 H 09/01/21 06:04: WBC 10.5, RBC 3.02 L, Hgb 9.0 L, Hct 27.6 L, MCV 91.4, MCH 29.8, MCHC 32.6, RDW Std Deviation 45.7 H, RDW Coeff of Riddhi 13.7, Plt Count 171, MPV 10.3, Immature Gran % (Auto) 0.500, Neut % (Auto) 81.8 H, Lymph % (Auto) 6.5 L, [place] % (Auto) 8.3, Eos % (Auto) 2.5, Baso % (Auto) 0.4, Absolute Neuts (auto) 8.6 H, Absolute Lymphs (auto) 0.68 L, Nucleated RBC % 0 09/01/21 06:04: Sodium 139, Potassium 3.9, Chloride 109 H, Carbon Dioxide 24.0, Anion Gap 6, BUN 21 H, Creatinine 1.53 H, Estim Creat Clear Calc 38.50, Est GFR (MDRD) Af Amer 57 L, Est GFR (MDRD) Non-Af 47 L, BUN/Creatinine Ratio 13.7, Glucose 159 H, Calcium 8.3 L 09/01/21 07:04: POC Glucose 154 H Micro: Microbiology 08/30/21 11:00 Urine Catheter - Catheter Urine Culture - Final Culture exhibits no growth. Physical Exam Const alert, oriented x3 and no apparent distress General Appearance: cooperative HEENT normocephalic and moist oral mucous membranes Eyes PERRL, EOMs intact bilaterally and conjunctivae normal Neck supple and no JVD Resp normal respiratory effort, no retractions and no use of accessory muscles Auscultation: diminished lung sounds; Negative for crackles, rales, rhonchi or wheezes Cardio regular rate, regular rhythm, S1 normal heart sound, S2 normal heart sound and no murmurs GI soft to palpation, non-tender and non-distended; Negative for hepatosplenomegaly Extremity no clubbing, cyanosis or edema Skin no rashes or lesions noted Neuro no focal motor deficits and no sensory deficits noted Psych affect normal Appearance: appropriate Assessment & Plan Assessment/Plan (1) Closed left hip fracture: QUALIFIERS: Encounter type: initial encounter Qualified Code(s): S72.002A - Fracture of unspecified part of neck of left femur, initial encounter for closed fracture PLAN: 1. Closed intertrochanteric left hip fracture status postrepair 08/30/2021/urethral stricture status post cystoscopy and Terrell placement under anesthesia ? Appreciate urology's assistance ? Continue with PT/OT and pain medication ?we will evaluate for possible need of SNF placement as he does live at the [facility] 2. HTN ? Blood pressure is stable ? Continue with his home lisinopril ? We will continue to monitor make adjustments as necessary 3. DM2 with CKD stage IIIb ? Hold his home metformin and glimepiride ? Continue with sliding scale insulin ? Accu-Cheks AC at bedtime ? We will monitor and make adjustments as necessary ? Renal function appears to be at baseline 4. Anemia of chronic disease ? Due to his diabetic nephropathy and CKD ? Hemoglobin is stable I do anticipate a drop after surgery ? We will continue to monitor DVT: SCDs Charges/Coding Visit Charges Inpatient E&M: 41111 Subs Hosp L2
[2021-09-01 11:50] LABS: Bedside Glucose 198 mg/dL (74-106)
[2021-09-01] MEDS: 0.9% Saline Lock 10 ML Syringe IV ×2 (15:50→20:44)
[2021-09-01] MEDS: hydrALAZINE 20 MG/ML Vial 10 MG IV ×2 (15:50→20:43)
[2021-09-01 22:20] LABS: Bedside Glucose 325 mg/dL (74-106)
[2021-09-01 22:20] LABS: Bedside Glucose 185 mg/dL (74-106)
[2021-09-02] MEDS: 0.9% Saline Lock 10 ML Syringe IV (00:25)
[2021-09-02 02:30] VITALS: BP 150/67; PULSE 86; RESP 16; TEMP 37.5; O2SAT 98
[2021-09-02] MEDS: oxyCODONE 5 MG Tablet PO ×4 (03:57→23:04)
[2021-09-02 05:13] LABS: Hematocrit 27.2 % (40-54); Mean Corp Hgb Conc 33.1 g/dL (32-36); Mean Corpuscular Volume 90.7 fL (80-94); Mean Platelet Vol. 9.7 fl (6.2-12.0); Platelet Count 166 K/mm3 (150-450); RBC Distribution Width CV 13.7 % (11.6-14.6); RBC Distribution Width SD 45.6 fl (35.1-43.9)
[2021-09-02 05:30] LABS: Anion Gap 5 (5-15); BUN 22 mg/dL (7-18); BUN/Creat Ratio 15.1 RATIO (10-20); Calcium,Total 8.1 mg/dL (8.5-10.1); Chloride 105 mmol/L (98-107); Creatinine, Serum 1.46 mg/dL (0.70-1.30); EST Glomerular Filtration Rate 50 mL/min (>60); Est Glom Filt Rate - Afr Amer 60 mL/min (>60); Estimated Creatinine Clearance 40.34 ml/min; Glucose 219 mg/dL (74-106); Potassium 3.5 mmol/L (3.5-5.1); Sodium Level 137 mmol/L (136-145)
[2021-09-02] MEDS: Acetaminophen 500 MG Tablet 1000 MG PO ×3 (06:31→23:03)
[2021-09-02] MEDS: Insulin Lispro 100 UNIT/ML INSULN.PEN SC ×4 (06:32→23:04)
[2021-09-02 06:45] LABS: Bedside Glucose 203 mg/dL (74-106)
[2021-09-02] MEDS: Lisinopril 20 MG Tablet PO (08:01)
[2021-09-02] MEDS: Calcium Carbonate 500 MG Tablet PO ×3 (08:01→16:04)
[2021-09-02 08:03] VITALS: BP 184/83; PULSE 94; RESP 18; TEMP 37; O2SAT 99
[2021-09-02] MEDS: Senna/Docusate Sodium 1 Tablet 2 TABLET PO (08:21)
--- NOTE | 2021-09-02 09:08 | PCM.PN.HOSP ---
Subjective Subjective Doing well, still has some discomfort from the Terrell. Awaiting placement Objective Data Objective Data Vital Signs: Vital Signs Temp Pulse Resp BP Pulse Ox 98.6 F 94 18 184/83 H 99 09/02/21 08:03 09/02/21 08:03 09/02/21 08:03 09/02/21 08:03 09/02/21 08:03 Oxygen Flow Rate (L/min) 3 Oxygen Delivery Method Room Air Weight: 160 lb 0.889 oz Body Mass Index (BMI) 24.3 Intake & Output: Intake and Output for Last 24 Hours 09/01/21 09/02/21 09/03/21 03:59 03:59 03:59 Intake Total 765 / 765 2310 / 2310 180 / 180 Output Total 1295 / 1295 1400 / 1400 200 / 200 Balance -530 / -530 910 / 910 -20 / -20 Lab / Micro Data Result Diagrams: 09/02/21 05:08 09/02/21 05:08 Labs: Laboratory Results - last 24 hr 09/01/21 11:26: POC Glucose 198 H 09/01/21 18:26: POC Glucose 325 H 09/01/21 22:05: POC Glucose 185 H 09/02/21 05:08: WBC 9.0, RBC 3.00 L, Hgb 9.0 L, Hct 27.2 L, MCV 90.7, MCH 30.0, MCHC 33.1, RDW Std Deviation 45.6 H, RDW Coeff of Riddhi 13.7, Plt Count 166, MPV 9.7 09/02/21 05:08: Sodium 137, Potassium 3.5, Chloride 105, Carbon Dioxide 27.0, Anion Gap 5, BUN 22 H, Creatinine 1.46 H, Estim Creat Clear Calc 40.34, Est GFR (MDRD) Af Amer 60, Est GFR (MDRD) Non-Af 50 L, BUN/Creatinine Ratio 15.1, Glucose 219 H, Calcium 8.1 L 09/02/21 06:28: POC Glucose 203 H Micro: Microbiology 08/30/21 11:00 Urine Catheter - Catheter Urine Culture - Final Culture exhibits no growth. Physical Exam Const alert, oriented x3 and no apparent distress General Appearance: cooperative HEENT normocephalic and moist oral mucous membranes Eyes PERRL, EOMs intact bilaterally and conjunctivae normal Neck supple and no JVD Resp normal respiratory effort, no retractions and no use of accessory muscles Auscultation: diminished lung sounds; Negative for crackles, rales, rhonchi or wheezes Cardio regular rate, regular rhythm, S1 normal heart sound, S2 normal heart sound and no murmurs GI soft to palpation, non-tender and non-distended; Negative for hepatosplenomegaly Extremity no clubbing, cyanosis or edema Skin no rashes or lesions noted Neuro no focal motor deficits and no sensory deficits noted Psych affect normal Appearance: appropriate Assessment & Plan Assessment/Plan (1) Closed left hip fracture: QUALIFIERS: Encounter type: initial encounter Qualified Code(s): S72.002A - Fracture of unspecified part of neck of left femur, initial encounter for closed fracture PLAN: 1. Closed intertrochanteric left hip fracture status postrepair 08/30/2021/urethral stricture status post cystoscopy and Terrell placement under anesthesia ? Appreciate urology's assistance, Terrell will need to remain in place ? Continue with PT/OT and pain medication ?we will evaluate for possible need of SNF placement as he does live at the [facility] 2. HTN ? Blood pressure is stable ? Continue with his home lisinopril ? Given his continued blood pressures over 160, will start him on low-dose Coreg 3. DM2 with CKD stage IIIb ? Hold his home metformin and glimepiride ? Continue with sliding scale insulin, Lantus ? Accu-Cheks AC at bedtime ? We will monitor and make adjustments as necessary ? Renal function appears to be at baseline 4. Anemia of chronic disease ? Due to his diabetic nephropathy and CKD ? Hemoglobin is stable I do anticipate a drop after surgery ? We will continue to monitor DVT: SCDs Charges/Coding Visit Charges Inpatient E&M: 32029 Subs Hosp L2
[2021-09-02 10:28] VITALS: O2SAT 90
[2021-09-02] MEDS: Carvedilol 3.125 MG TABLET PO ×2 (10:56→23:04)
[2021-09-02] MEDS: Insulin Glargine-YFGN 100 UNIT/ML Pen SC (10:59)
[2021-09-02 13:21] LABS: Bedside Glucose 264 mg/dL (74-106)
[2021-09-02 14:00] VITALS: BP 149/66; PULSE 84; RESP 20; TEMP 36.9; O2SAT 98
[2021-09-02 16:21] LABS: Bedside Glucose 264 mg/dL (74-106)
[2021-09-02 20:00] VITALS: BP 162/87; PULSE 75; RESP 16; TEMP 36.7; O2SAT 97
[2021-09-03] VITALS (8 sets, daily range): BP systolic 135–173; BP diastolic 64–90; PULSE 76–90; RESP 16–18; TEMP 36.8–37.1; O2SAT 96–99
[2021-09-03 00:06] LABS: Bedside Glucose 168 mg/dL (74-106)
[2021-09-03] MEDS: Morphine 2 MG/ML Syringe IV (01:27)
[2021-09-03] MEDS: 0.9% Saline Lock 10 ML Syringe IV ×2 (01:28→02:54)
[2021-09-03] MEDS: hydrALAZINE 20 MG/ML Vial 10 MG IV (02:53)
[2021-09-03 04:54] LABS: Absolute Lymphocyte Count 0.98 X10^3/uL (0.83-4.51); Absolute Neutrophil Count 6.3 X10^3/uL (2.0-7.7); Basophil# 0.02 X10^3/uL; Basophil% 0.2 % (0-1); Eosinophil# 0.42 X10^3/uL; Eosinophils% 5.1 % (0-5); Hematocrit 26.7 % (40-54); Hemoglobin 8.9 g/dL (13.0-16.5); Lymphocyte # 0.98 X10^3/ul (0.83-4.51); Lymphocyte % 11.8 % (19-41); Mean Corp Hgb Conc 33.3 g/dL (32-36); Mean Corpuscular Hgb 30.3 pg (27.0-32.0); Mean Corpuscular Volume 90.8 fL (80-94); Monocyte# 0.57 X10^3/uL; Monocyte% 6.9 % (0-10); NRBC Flagged by Analyzer 0 % (0-5); Neutrophil # 6.25 X10^3/uL (2.7-7.7); Neutrophil % 75.4 % (47-70); Platelet Count 210 K/mm3 (150-450); RBC Distribution Width CV 13.8 % (11.6-14.6); RBC Distribution Width SD 45.8 fl (35.1-43.9); Red Blood Count 2.94 M/mm3 (4.6-6.2); White Blood Count 8.3 K/mm3 (4.4-11.0)
[2021-09-03 05:31] LABS: Anion Gap 5 (5-15); BUN 25 mg/dL (7-18); BUN/Creat Ratio 17.6 RATIO (10-20); Calcium,Total 8.6 mg/dL (8.5-10.1); Chloride 104 mmol/L (98-107); Creatinine, Serum 1.42 mg/dL (0.70-1.30); EST Glomerular Filtration Rate 51 mL/min (>60); Est Glom Filt Rate - Afr Amer 62 mL/min (>60); Estimated Creatinine Clearance 41.48 ml/min; Glucose 168 mg/dL (74-106); Potassium 3.8 mmol/L (3.5-5.1); Sodium Level 137 mmol/L (136-145)
[2021-09-03] MEDS: Acetaminophen 500 MG Tablet 1000 MG PO ×2 (06:41→14:17)
[2021-09-03] MEDS: Insulin Lispro 100 UNIT/ML INSULN.PEN SC ×2 (06:41→11:37)
[2021-09-03 06:51] LABS: Bedside Glucose 184 mg/dL (74-106)
[2021-09-03] MEDS: Calcium Carbonate 500 MG Tablet PO ×2 (08:02→12:58)
[2021-09-03] MEDS: Insulin Glargine-YFGN 100 UNIT/ML Pen SC (09:35)
[2021-09-03] MEDS: Lisinopril 20 MG Tablet PO (09:35)
[2021-09-03] MEDS: Carvedilol 3.125 MG TABLET PO (09:35)
[2021-09-03] MEDS: oxyCODONE 5 MG Tablet PO ×2 (09:35→14:17)
[2021-09-03 11:21] LABS: Bedside Glucose 284 mg/dL (74-106)
--- NOTE | 2021-09-03 12:07 | CASEMGMT ---
Addendum entered by Mariana Stewart 09/03/21 14:24: Pt ready for discharge. 7000 convalescent form completed in [facility] and faxed along with orders to [facility]. Transportation arranged with [facility] for 3:30 black pickler via [facility]. Pt and nursing made aware of discharge time. Phone call to Padmini and updated on discharge and black pickler. Plan: [facility], skilled level of care under convalescent stay JOSE GUADALUPE Frazier Original Note: Social Work Phone call placed to Padmini at [facility] and precert has been obtained. Pt can discharge to [facility] today. Physician updated. met with pt and informed precert obtained and [facility] can accept. Pt agreeable to d/c plan. JOSE GUADALUPE Frazier
--- NOTE | 2021-09-03 12:36 | PCM.CONS.U ---
HPI Consult Data Date of Consult: 09/03/21 HPI Narrative HPI Narrative: YASH WILCOX, is a 76 M who presents To hospital with a broken hip he underwent went a hip arthroplasty also at the place catheter under guidewire and dilation of urethral stricture he has a Terrell catheter in place and I think once he is mobile and ambulatory we can take the catheter out for voiding trial. [facility] Medical History (Updated 08/30/21 @ 18:[address] Malvin Hsu MD) Diabetes Hypertension Home Medications lisinopril 20 mg PO DAILY 12/27/20 [History Last Taken 08/29/21] glimepiride 4 mg PO DAILY 08/30/21 [History Last Taken 08/29/21] metformin 1,000 mg PO BID 08/30/21 [History Last Taken 08/29/21] Allergy/AdvReac Type Severity Reaction Status Date / Time codeine AdvReac Upset Verified 08/30/21 01:53 Stomach Family History Other Diabetes Surgical History no surgical history Social History household members: other details: Resides at the [facility] Smoking Status: Never smoker substance use type: does not use Lab / Micro Data Result Diagrams: 09/03/21 04:40 09/03/21 04:40 Labs: Laboratory Results - last 24 hr 09/02/21 10:59: POC Glucose 264 H 09/02/21 16:08: POC Glucose 264 H 09/02/21 23:00: POC Glucose 168 H 09/03/21 04:40: WBC 8.3, RBC 2.94 L, Hgb 8.9 L, Hct 26.7 L, MCV 90.8, MCH 30.3, MCHC 33.3, RDW Std Deviation 45.8 H, RDW Coeff of Riddhi 13.8, Plt Count 210, MPV 10.0, Immature Gran % (Auto) 0.600, Neut % (Auto) 75.4 H, Lymph % (Auto) 11.8 L, [place] % (Auto) 6.9, Eos % (Auto) 5.1 H, Baso % (Auto) 0.2, Absolute Neuts (auto) 6.3, Absolute Lymphs (auto) 0.98, Nucleated RBC % 0 09/03/21 04:40: Sodium 137, Potassium 3.8, Chloride 104, Carbon Dioxide 28.0, Anion Gap 5, BUN 25 H, Creatinine 1.42 H, Estim Creat Clear Calc 41.48, Est GFR (MDRD) Af Amer 62, Est GFR (MDRD) Non-Af 51 L, BUN/Creatinine Ratio 17.6, Glucose 168 H, Calcium 8.6 09/03/21 06:39: POC Glucose 184 H 09/03/21 11:13: POC Glucose 284 H Micro: Microbiology 09/03/21 12:00 Nasal Secretion SARS-CoV-2 Antigen (Rapid) - Final
--- NOTE | 2021-09-03 13:11 | PCM.DC.SUM ---
Providers Date of Admission: 08/30/21 Primary Care Physician: Dr. Hitesh Brown, Consultations 08/30/21 04:18 Consult: Orthopedics Routine Consulting Provider: Kervin Davis Reason for Consult: Left intertrochanteric hip fracture EMERGENT Consult: No Notified: Yes Date Notified: 08/30/21 Time Notified: 02:00 Method of Notification: ED Physician Initiated 08/30/21 11:57 Consult: Urology Routine Consulting Provider: Malvin Hsu Reason for Consult: urinary retention with incontinence and unable to place schumacher EMERGENT Consult: No Notified: Yes Date Notified: 08/30/21 Time Notified: 11:57 Method of Notification: Verbal Reason For Visit: ACUTE LEFT INTERTROCHANTERIC FRACTURE Diagnosis Discharge Diagnosis (1) Closed left hip fracture: Status: Acute Code(s): S72.002A - Fracture of unspecified part of neck of left femur, initial encounter for closed fracture Qualifiers: Encounter type: initial encounter Qualified Code(s): S72.002A - Fracture of unspecified part of neck of left femur, initial encounter for closed fracture Medications at Discharge Home Medications lisinopril 20 mg PO DAILY 12/27/20 glimepiride 4 mg PO DAILY 08/30/21 metformin 1,000 mg PO BID 08/30/21 acetaminophen 650 mg PO Q6H PRN #30 tab 09/03/21 aspirin 81 mg PO BID #56 tab 09/03/21 carvedilol 3.125 mg PO BID #60 tab 09/03/21 oxycodone 5 mg PO Q6H PRN 3 Days #12 tab 09/03/21 Hospital Course Operations total hip replacement Procedures None Summary of Care Provided Minutes Spent on Discharge: 45 Hospital Course: Patient is a 76-year-old male with an extensive past medical history as outlined which includes hypertension and diabetes mellitus. He was admitted via the ED on 08/30/2021 from the [facility] where he lived with a complaint of mechanical fall. He was going to use the bathroom at night and lost his balance and landed on his left side. He developed pain in the left hip and so was brought to the ED. Imaging of the left hip showed left intertrochanteric fracture. Orthopedic surgery was consulted. Patient was placed on IV pain medication. He had placement of intramedullary nail in the left femur to treat the left intertrochanteric proximal femoral fracture. Hospital course was complicated by urethral stricture for which urology was consulted. He had dilation of the urethral stricture and placement of Schumacher catheter. There was no further complication in the hospital course and he remained stable. He was discharged to long term facility on 09/03/2021. He is follow-up with his primary care doctor, urology and orthopedic surgery. Patient seen and examined prior to discharge. He felt well and had no active complaints. He had an uneventful night. Review of systems otherwise negative. Labs and vitals reviewed. Patient reviewed and reconciled. Of note he was discharged on p.o. aspirin 81 mg twice daily for DVT prophylaxis. He was also given a prescription for p.o. oxycodone 5 mg every 6 hours as needed for total of 3 days and 12 tablets. OARRS score was checked and no red flags were seen. Physical Exam Const alert, oriented x3 and no apparent distress General Appearance: cooperative, comfortable and well kempt Orientation / Consciousness: awake Exam Limitations: no limitations HEENT normocephalic, head/scalp atraumatic, hearing grossly normal bilaterally and moist oral mucous membranes Eyes PERRL, EOMs intact bilaterally and conjunctivae normal Neck no lymphadenopathy and supple Resp normal respiratory effort, no retractions, no use of accessory muscles and clear to auscultation bilaterally Cardio regular rate, regular rhythm, S1 normal heart sound, S2 normal heart sound and no murmurs GI normal to inspection, nondistended, normoactive bowel sounds, soft to palpation, non-tender and non-distended Extremity normal to inspection, full ROM and no clubbing, cyanosis or edema Skin no rashes or lesions noted Neuro oriented x3, CN's II-XII intact bilaterally and moves all extremities Sensorium / Orientation: awake and alert Psych affect normal Weight / BMI Weight Weight: 160 lb 0.889 oz Body Mass Index (BMI) 24.3 ABG / Lab / Microbiology Data Result Diagrams: 09/03/21 04:40 09/03/21 04:40 Laboratory: Laboratory Results - last 24 hr 09/02/21 10:59: POC Glucose 264 H 09/02/21 16:08: POC Glucose 264 H 09/02/21 23:00: POC Glucose 168 H 09/03/21 04:40: WBC 8.3, RBC 2.94 L, Hgb 8.9 L, Hct 26.7 L, MCV 90.8, MCH 30.3, MCHC 33.3, RDW Std Deviation 45.8 H, RDW Coeff of Riddhi 13.8, Plt Count 210, MPV 10.0, Immature Gran % (Auto) 0.600, Neut % (Auto) 75.4 H, Lymph % (Auto) 11.8 L, [place] % (Auto) 6.9, Eos % (Auto) 5.1 H, Baso % (Auto) 0.2, Absolute Neuts (auto) 6.3, Absolute Lymphs (auto) 0.98, Nucleated RBC % 0 09/03/21 04:40: Sodium 137, Potassium 3.8, Chloride 104, Carbon Dioxide 28.0, Anion Gap 5, BUN 25 H, Creatinine 1.42 H, Estim Creat Clear Calc 41.48, Est GFR (MDRD) Af Amer 62, Est GFR (MDRD) Non-Af 51 L, BUN/Creatinine Ratio 17.6, Glucose 168 H, Calcium 8.6 09/03/21 06:39: POC Glucose 184 H 09/03/21 11:13: POC Glucose 284 H Microbiology: Microbiology 09/03/21 12:00 Nasal Secretion SARS-CoV-2 Antigen (Rapid) - Final 08/30/21 11:00 Urine Catheter - Catheter Urine Culture - Final Culture exhibits no growth. D/C Instructions Discharge Diet: Low fat / Low cholesterol Discharge Activity: Return to Normal Activity Weight Bearing Status: Weight bearing as tolerated Call your doctor if you observe: Fever of 101 or Higher, Shortness of breath, Dizziness, Swelling in the ankles, Chest pain, Increased palpitations (irregular heartbeat) and Uncontrolled pain Meaningful Use Info Meaningful Use Diagnoses (Choose all that apply): None applicable Discharge Plan Admission Admit Date/Time: 08/30/21 02:48 Primary Reason for Your Visit: left hip fracture Attending Provider: Loree Dickinson Primary Care Provider: Hitesh Brown Consulting Providers: Olayinka Browning ; Kervin Davis ; Malvin Hsu ; Kervin Arizmendi Instructions Additional Instructions / Restrictions: Weightbearing as tolerated left lower extremity. Dry sterile dressing changes daily left hip. Okay to shower on postoperative day #3, no tub soaks. TO be discharged with Schumacher catheter in situ Discharge Orders/Prescriptions Prescriptions: New carvedilol 3.125 mg Tablet 3.125 mg PO BID Qty: 60 RF: 1 oxycodone 5 mg tablet 5 mg PO Q6H PRN (Reason: pain) 3 Days Qty: 12 RF: 0 acetaminophen 325 mg tablet 650 mg PO Q6H PRN (Reason: pain) Qty: 30 RF: 0 aspirin 81 mg tablet,chewable 81 mg PO BID Qty: 56 RF: 0 Continued lisinopril 20 mg tablet 20 mg PO DAILY RF: 0 metformin 500 mg tablet 1,000 mg PO BID RF: 0 glimepiride 4 mg tablet 4 mg PO DAILY RF: 0 Referrals / Follow Up: Hitesh Brown DO [Primary Care Provider] - Within 2 Weeks Malvin Hsu MD [STAFF PHYSICIAN] - Within 1 Week Kervin Davis DO [STAFF PHYSICIAN] - 09/17/21 Disposition Disposition (needs filled in before D/C Order can be placed): Detention Facility Charges/Coding Visit Charges Inpatient E&M: 62348 Disch Hosp
--- NOTE | 2021-09-03 13:42 | PCM.TXEXTCAR ---
Diet 08/31/21 08:17 ADA [Diet: Cardiac: Calorie-Controlled] Is pt able to select menu?: Yes How many daily calories?: 1800 calorie Routine Orders/Code Status Enema Type: Fleetz Enema Frequency: Daily PRN Suppository Type: Dulcolax 10mg Suppository Frequency: Daily PRN O2 Frequency: PRN Keep PO Greater than or Equal to (%): 90 Wound(s) LEFT HIP: Wound Type: Surgical Incision Therapies Weight Bearing: Weight bearing as tolerated Physical Therapy: Eval and Treat Occupational Therapy: Eval and Treat Problem/Diagnosis (1) Closed left hip fracture: Status: Acute Allergies/Procedures Done in Hospital Allergies codeine Adverse Reaction (Verified 08/30/21 01:53) Upset Stomach Procedures: None Type of Care/Length of Stay Estimated LOS: Convalescent Care Less Than 30 days Type of Care Needed: Skilled Rehab Potential: Good Prognosis: Good Additional Orders/Day of Discharge Day of Discharge: 09/03/21 Discharge Plan Admission Admit Date/Time: 08/30/21 02:48 Primary Reason for Your Visit: left hip fracture Attending Provider: Loree Dickinson Primary Care Provider: Hitesh Brown Consulting Providers: Olayinka Browning ; Kervin Davis ; Malvin Hsu ; Kervin Arizmendi Instructions Additional Instructions / Restrictions: Weightbearing as tolerated left lower extremity. Dry sterile dressing changes daily left hip. Okay to shower on postoperative day #3, no tub soaks. TO be discharged with Terrell catheter in situ Discharge Orders/Prescriptions Prescriptions: New carvedilol 3.125 mg Tablet 3.125 mg PO BID Qty: 60 RF: 1 oxycodone 5 mg tablet 5 mg PO Q6H PRN (Reason: pain) 3 Days Qty: 12 RF: 0 acetaminophen 325 mg tablet 650 mg PO Q6H PRN (Reason: pain) Qty: 30 RF: 0 aspirin 81 mg tablet,chewable 81 mg PO BID Qty: 56 RF: 0 Continued lisinopril 20 mg tablet 20 mg PO DAILY RF: 0 metformin 500 mg tablet 1,000 mg PO BID RF: 0 glimepiride 4 mg tablet 4 mg PO DAILY RF: 0 Referrals / Follow Up: Hitesh Brown DO [Primary Care Provider] - Within 2 Weeks Malvin Hsu MD [STAFF PHYSICIAN] - Within 1 Week Kervin Davis DO [STAFF PHYSICIAN] - 09/17/21 Disposition Disposition (needs filled in before D/C Order can be placed): Group Home Facility
[2021-09-03] MEDS: Glucerna Shake 120 ML LIQUID PO (14:18)
== END 2021-09-03 15:49 | disposition skilled nursing facility (03) | DRG 482 ==
LOC: ED 02:24 → MS3 03:06
PROVIDERS: Anesthesiology; Family Medicine; Student in an Organized Health Care Education/Training Program; Admitting Provider Hospitalist; Emergency Provider Emergency Medicine; PCP Family Medicine; Visit Provider Student in an Organized Health Care Education/Training Program
PROC: 0QS736Z Reposition Left Upper Femur with Intramedullary Internal Fixation Device, Percutaneous Approach (ICD-10-PCS; CPT 27245; principal; 2021-08-30 16:00)
DX: S72.142A Displaced intertrochanteric fracture of left femur, initial encounter for closed fracture (principal); D63.1 Anemia in chronic kidney disease; E11.22 Type 2 diabetes mellitus with diabetic chronic kidney disease; N18.32 Chronic kidney disease, stage 3b; I12.9 Hypertensive chronic kidney disease with stage 1 through stage 4 chronic kidney disease, or unspecified chronic kidney disease; W01.10XA Fall on same level from slipping, tripping and stumbling with subsequent striking against unspecified object, initial encounter; Z79.84 Long term (current) use of oral hypoglycemic drugs; N35.919 Unspecified urethral stricture, male, unspecified site; Z79.899 Other long term (current) drug therapy; Y93.01 Activity, walking, marching and hiking; Y99.9 Unspecified external cause status; Y92.89 Other specified places as the place of occurrence of the external cause; R32 Unspecified urinary incontinence
CPT/HCPCS: 36415; 71045; 73501; 73502; 76000; 80048; 80053; 81002; 82306; 82607; 82962; 83036; 85025; 85027; 85610; 85730; 86850; 86900; 86901; 87086; 87426; 93005; 94762; 97110; 97162; 97166; 97530; 97535; 99251; 99285; C1776; J7120; A4216; G0463; J2405

== ENCOUNTER 2021-09-04 06:25 | Outpatient (REF) | payer SELFPAY ==
[2021-09-04 08:22] LABS: ALB/GLOB Ratio 0.6 RATIO (0.9-2.4); AST(SGOT) 25 U/L (15-37); Alanine Aminotransfer ALT/SGPT 19 U/L (16-61); Albumin, Serum 2.3 g/dL (3.2-5.0); Alkaline Phosphatase 83 U/L (45-117); Anion Gap 6 (5-15); BUN 28 mg/dL (7-18); BUN/Creat Ratio 18.5 RATIO (10-20); Calcium,Total 8.7 mg/dL (8.5-10.1); Chloride 102 mmol/L (98-107); Creatinine, Serum 1.51 mg/dL (0.70-1.30); EST Glomerular Filtration Rate 48 mL/min (>60); Est Glom Filt Rate - Afr Amer 58 mL/min (>60); Globulin 3.9 g/dL (2.2-4.2); Glucose 192 mg/dL (74-106); Protein, Total 6.2 g/dL (6.4-8.2); Sodium Level 135 mmol/L (136-145)
== END 2021-09-04 23:59 | disposition home or self-care (01) ==
LOC: OLS.SW500 06:25
PROVIDERS: PCP Family Medicine; Visit Provider Family Medicine
DX: I12.9 Hypertensive chronic kidney disease with stage 1 through stage 4 chronic kidney disease, or unspecified chronic kidney disease (principal); N18.9 Chronic kidney disease, unspecified
CPT/HCPCS: 36415; 80053

== ENCOUNTER → 2021-09-11 | Outpatient (REF) | payer SELFPAY ==
[2021-09-11 08:09] LABS: Hematocrit 26.8 % (40-54); Hemoglobin 8.7 g/dL (13.0-16.5); Mean Corp Hgb Conc 32.5 g/dL (32-36); Mean Corpuscular Hgb 30.1 pg (27.0-32.0); Mean Corpuscular Volume 92.7 fL (80-94); Mean Platelet Vol. 9.8 fl (6.2-12.0); Platelet Count 504 K/mm3 (150-450); RBC Distribution Width CV 13.7 % (11.6-14.6); RBC Distribution Width SD 46.8 fl (35.1-43.9); Red Blood Count 2.89 M/mm3 (4.6-6.2); White Blood Count 11.6 K/mm3 (4.4-11.0)
[2021-09-11 08:22] LABS: Anion Gap 8 (5-15); BUN 28 mg/dL (7-18); BUN/Creat Ratio 21.2 RATIO (10-20); Calcium,Total 8.8 mg/dL (8.5-10.1); Chloride 107 mmol/L (98-107); Creatinine, Serum 1.32 mg/dL (0.70-1.30); EST Glomerular Filtration Rate 56 mL/min (>60); Est Glom Filt Rate - Afr Amer 67 mL/min (>60); Glucose 47 mg/dL (74-106); Potassium 4.7 mmol/L (3.5-5.1); Sodium Level 140 mmol/L (136-145)
== END | disposition home or self-care (01) ==
LOC: OLS.SW500 05:00
PROVIDERS: PCP Family Medicine; Visit Provider Family Medicine
DX: I12.9 Hypertensive chronic kidney disease with stage 1 through stage 4 chronic kidney disease, or unspecified chronic kidney disease (principal); E11.21 Type 2 diabetes mellitus with diabetic nephropathy; E11.22 Type 2 diabetes mellitus with diabetic chronic kidney disease; N18.32 Chronic kidney disease, stage 3b; D63.1 Anemia in chronic kidney disease
CPT/HCPCS: 36415; 80048; 85027

== ENCOUNTER → 2021-09-18 | Outpatient (REF) | payer SELFPAY ==
[2021-09-18 08:28] LABS: Hematocrit 29.4 % (40-54); Hemoglobin 9.5 g/dL (13.0-16.5); Mean Corp Hgb Conc 32.3 g/dL (32-36); Mean Corpuscular Volume 92.7 fL (80-94); Mean Platelet Vol. 9.8 fl (6.2-12.0); Platelet Count 437 K/mm3 (150-450); RBC Distribution Width CV 13.4 % (11.6-14.6); RBC Distribution Width SD 45.9 fl (35.1-43.9); Red Blood Count 3.17 M/mm3 (4.6-6.2); White Blood Count 9.8 K/mm3 (4.4-11.0)
[2021-09-18 08:41] LABS: Anion Gap 7 (5-15); BUN 39 mg/dL (7-18); BUN/Creat Ratio 26.5 RATIO (10-20); Calcium,Total 9.2 mg/dL (8.5-10.1); Chloride 106 mmol/L (98-107); Creatinine, Serum 1.47 mg/dL (0.70-1.30); EST Glomerular Filtration Rate 49 mL/min (>60); Est Glom Filt Rate - Afr Amer 60 mL/min (>60); Glucose 84 mg/dL (74-106); Sodium Level 139 mmol/L (136-145)
== END | disposition home or self-care (01) ==
LOC: OLS.SW500 06:45
PROVIDERS: PCP Family Medicine; Visit Provider Family Medicine
DX: N18.32 Chronic kidney disease, stage 3b (principal)
CPT/HCPCS: 36415; 80048; 85027

== ENCOUNTER → 2021-09-20 | Outpatient (REF) | payer SELFPAY ==
[2021-09-20 08:26] LABS: Hematocrit 30.2 % (40-54); Hemoglobin 9.5 g/dL (13.0-16.5); Mean Corp Hgb Conc 31.5 g/dL (32-36); Mean Corpuscular Hgb 29.1 pg (27.0-32.0); Mean Corpuscular Volume 92.6 fL (80-94); Platelet Count 385 K/mm3 (150-450); RBC Distribution Width CV 13.6 % (11.6-14.6); RBC Distribution Width SD 46.1 fl (35.1-43.9); Red Blood Count 3.26 M/mm3 (4.6-6.2)
[2021-09-20 08:59] LABS: Anion Gap 6 (5-15); BUN 38 mg/dL (7-18); BUN/Creat Ratio 25.5 RATIO (10-20); Calcium,Total 9.3 mg/dL (8.5-10.1); Chloride 106 mmol/L (98-107); Creatinine, Serum 1.49 mg/dL (0.70-1.30); EST Glomerular Filtration Rate 48 mL/min (>60); Est Glom Filt Rate - Afr Amer 59 mL/min (>60); Glucose 61 mg/dL (74-106); Potassium 5.3 mmol/L (3.5-5.1); Sodium Level 137 mmol/L (136-145)
== END | disposition home or self-care (01) ==
LOC: OLS.SW500 04:00
PROVIDERS: PCP Family Medicine; Referring Provider Family Medicine; Visit Provider Family Medicine
DX: I10 Essential (primary) hypertension (principal); D64.9 Anemia, unspecified
CPT/HCPCS: 36415; 80048; 85027

== ENCOUNTER → 2021-09-25 | Outpatient (REF) | payer MEDICARE, SELFPAY ==
[2021-09-25 08:20] LABS: Hematocrit 30.8 % (40-54); Hemoglobin 9.7 g/dL (13.0-16.5); Mean Corp Hgb Conc 31.5 g/dL (32-36); Mean Corpuscular Hgb 29.5 pg (27.0-32.0); Mean Corpuscular Volume 93.6 fL (80-94); Mean Platelet Vol. 10.2 fl (6.2-12.0); Platelet Count 298 K/mm3 (150-450); RBC Distribution Width CV 13.6 % (11.6-14.6); RBC Distribution Width SD 46.8 fl (35.1-43.9); Red Blood Count 3.29 M/mm3 (4.6-6.2); White Blood Count 8.5 K/mm3 (4.4-11.0)
[2021-09-25 08:33] LABS: Anion Gap 3 (5-15); BUN 39 mg/dL (7-18); BUN/Creat Ratio 25.7 RATIO (10-20); Calcium,Total 9.2 mg/dL (8.5-10.1); Chloride 104 mmol/L (98-107); Creatinine, Serum 1.52 mg/dL (0.70-1.30); EST Glomerular Filtration Rate 47 mL/min (>60); Est Glom Filt Rate - Afr Amer 57 mL/min (>60); Glucose 194 mg/dL (74-106); Potassium 4.9 mmol/L (3.5-5.1); Sodium Level 135 mmol/L (136-145)
== END | disposition home or self-care (01) ==
LOC: OLS.SW500 04:00
PROVIDERS: PCP Family Medicine; Visit Provider Family Medicine
DX: N18.32 Chronic kidney disease, stage 3b (principal); D64.9 Anemia, unspecified; S72.142D Displaced intertrochanteric fracture of left femur, subsequent encounter for closed fracture with routine healing
CPT/HCPCS: 36415; 80048; 85027

== ENCOUNTER → 2021-10-02 | Outpatient (REF) | payer MEDICARE, SELFPAY ==
[2021-10-02 08:57] LABS: Hemoglobin 10.1 g/dL (13.0-16.5); Mean Corp Hgb Conc 31.6 g/dL (32-36); Mean Corpuscular Hgb 29.2 pg (27.0-32.0); Mean Corpuscular Volume 92.5 fL (80-94); Mean Platelet Vol. 10.1 fl (6.2-12.0); Platelet Count 288 K/mm3 (150-450); RBC Distribution Width CV 13.4 % (11.6-14.6); RBC Distribution Width SD 45.7 fl (35.1-43.9); Red Blood Count 3.46 M/mm3 (4.6-6.2)
[2021-10-02 09:08] LABS: Anion Gap 7 (5-15); BUN 38 mg/dL (7-18); BUN/Creat Ratio 27.7 RATIO (10-20); Calcium,Total 9.8 mg/dL (8.5-10.1); Chloride 102 mmol/L (98-107); Creatinine, Serum 1.37 mg/dL (0.70-1.30); EST Glomerular Filtration Rate 53 mL/min (>60); Est Glom Filt Rate - Afr Amer 65 mL/min (>60); Glucose 88 mg/dL (74-106); Potassium 5.1 mmol/L (3.5-5.1); Sodium Level 137 mmol/L (136-145)
== END | disposition home or self-care (01) ==
LOC: OLS.SW500 04:00
PROVIDERS: PCP Family Medicine; Visit Provider Family Medicine
DX: N18.32 Chronic kidney disease, stage 3b (principal)
CPT/HCPCS: 36415; 80048; 85027

== ENCOUNTER → 2021-10-09 | Outpatient (REF) | payer MEDICARE, SELFPAY ==
[2021-10-09 09:01] LABS: Hematocrit 32.3 % (40-54); Hemoglobin 10.2 g/dL (13.0-16.5); Mean Corp Hgb Conc 31.6 g/dL (32-36); Mean Corpuscular Hgb 29.6 pg (27.0-32.0); Mean Corpuscular Volume 93.6 fL (80-94); Mean Platelet Vol. 9.8 fl (6.2-12.0); Platelet Count 313 K/mm3 (150-450); RBC Distribution Width CV 13.7 % (11.6-14.6); RBC Distribution Width SD 46.7 fl (35.1-43.9); Red Blood Count 3.45 M/mm3 (4.6-6.2); White Blood Count 10.1 K/mm3 (4.4-11.0)
[2021-10-09 09:25] LABS: Anion Gap 6 (5-15); BUN 35 mg/dL (7-18); BUN/Creat Ratio 23.6 RATIO (10-20); Calcium,Total 9.6 mg/dL (8.5-10.1); Chloride 106 mmol/L (98-107); Creatinine, Serum 1.48 mg/dL (0.70-1.30); EST Glomerular Filtration Rate 49 mL/min (>60); Est Glom Filt Rate - Afr Amer 59 mL/min (>60); Glucose 127 mg/dL (74-106); Potassium 4.8 mmol/L (3.5-5.1); Sodium Level 138 mmol/L (136-145)
== END | disposition home or self-care (01) ==
LOC: OLS.SW500 04:00
PROVIDERS: PCP Family Medicine; Visit Provider Family Medicine
DX: I10 Essential (primary) hypertension (principal); D64.9 Anemia, unspecified; Z79.899 Other long term (current) drug therapy
CPT/HCPCS: 36415; 80048; 85027

== ENCOUNTER 2022-02-09 16:28 | Emergency (ER) | payer MEDICARE, SELFPAY ==
[2022-02-09 16:31] VITALS: BP 208/96; PULSE 88; RESP 16; TEMP 36.6; O2SAT 97; BMI 25.2
--- NOTE | 2022-02-09 16:48 | EX.ED.DYSGE1 ---
HPI History of Present Illness Chief Complaint: Complaint Informant: patient Narrative Narrative: Patient was brought in by EMS from the [facility]. He states he has been having urinary incontinence for about a year or so. He thinks it might be worsening. It is causing a disruption at the [facility] so EMS was called today. He states sometimes it cook a little bit but not regularly. But he states he feels great. He does not feel ill. He denies instability or headaches. He does not feel like he has to urinate now. He does state that he is diabetic. His sugar was last checked when he was at his physician's office which was a while ago. He is not on anything for an enlarged prostate nor does he know if he has 1. Of note, patient is not really a good informant for his medical history or details. He feels that nothing is different today than it has been for a while. [facility] Medical History Closed left hip fracture Diabetes Hypertension Urethral stricture unspecified Home Medications lisinopril 20 mg tablet 20 mg PO DAILY HTN 12/27/20 [History Last Taken 08/29/21] glimepiride 4 mg tablet 4 mg PO DAILY diabetes 08/30/21 [History Last Taken 08/29/21] metformin 500 mg tablet 1,000 mg PO BID DM 08/30/21 [History Last Taken 08/29/21] acetaminophen 325 mg tablet 650 mg PO Q6H PRN pain #30 tabs 09/03/21 [Rx Last Taken Unknown] aspirin 81 mg chewable tablet 81 mg PO BID #56 tabs 09/03/21 [Rx Last Taken Unknown] carvedilol 3.125 mg tablet 3.125 mg PO BID #60 tabs 09/03/21 [Rx Last Taken Unknown] oxycodone 5 mg tablet 5 mg PO Q6H PRN pain 3 days #12 tabs 09/03/21 [Rx Last Taken Unknown] cephalexin 500 mg capsule 500 mg PO Q6 #40 caps 02/09/22 [Rx Last Taken Unknown] Allergy/AdvReac Type Severity Reaction Status Date / Time codeine AdvReac Upset Verified 08/30/21 01:53 Stomach Family History Other Diabetes Hyperlipidemia Social History household members: other details: Resides at the [facility] Smoking Status: Never smoker substance use type: does not use ROS ROS ED Constitutional Constitutional ED: Denies chills or fever(s) ENT ENT ED: Denies rhinorrhea or sore throat Cardiovascular Cardiovascular: Denies chest pain Respiratory/Chest Respiratory/Chest: Denies cough Gastrointestinal Gastrointestinal: Denies abdominal pain, diarrhea, nausea or vomiting Genitourinary Genitourinary ED: Reports dysuria, urinary frequency and other Details: See history of present illness ; Denies hematuria Musculoskeletal Musculoskeletal: Reports other Details: No back or flank pain ; Denies back pain Integumentary Denies rash Endocrine Endocrinology: Reports other Details: Patient drinks water but denies drinking a large amount frequently. ; Denies polydipsia Hematologic/Lymphatic Hematologic/Lymphatic: Denies anemia Allergic/Immunologic Allergic/Immunologic ED: Denies urticaria EXAM Physical Exam Const Vital Signs: 02/09/22 16:31 Temperature 97.9 F Temperature Source Oral Pulse Rate 88 Respiratory Rate 16 Blood Pressure 208/96 H Blood Pressure Mean 133 Pulse Ox 97 Oxygen Delivery Method Room Air Positive well nourished and well developed General Appearance ED: well developed and NAD HEENT Reports moist mucous membranes Eyes General Eye ED: Negative for scleral icterus Neck no JVD Chest Wall inspection of chest normal Resp normal respiratory effort and clear to auscultation bilaterally Cardio regular rate, regular rhythm and no murmurs GI normal to inspection, nondistended, normoactive bowel sounds and non-tender GI Narrative: I do not feel an enlarged bladder on exam. Overall benign abdomen. Narrative: Mild erythema in skin folds but otherwise no notable breakdown. No testicular tenderness enlargement or sign of infection. Back/Spine no CVA tenderness Extremity Extremity Narrative: Chronic stasis changes of the lower extremities but no edema or sign of acute infection. No tenderness. Neuro Sensorium / Orientation: alert Psych mental status grossly normal Skin Skin Narrative: Mild erythema in skin folds of inguinal region but no significant signs of infection. MDM MDM MDM Narrative Medical decision making narrative: Patient CBC shows minimal nonspecific anemia but normal white count and platelets. Electrolytes showed mild elevation in the creatinine. This is likely due to some hyperglycemia that was also seen. Urine is consistent with UTI. It is cloudy with greater than 100 white cells and 500 leukocyte esterase. Nitrites are negative. I went and talked with the patient. He states he has metformin that he takes twice a day. He knew the dose was 1000 mg. He knew he was on glimepiride but takes it once a day but he did not know the dose. He did know it was smaller though. He has these medicines. He states he does not feel ill. He does not want to come in the hospital. He knows he is at [facility] is 2021 [employer] is the president. He is not the best detail for his medical history but he is pretty good. He is not sick or septic. I think his sugar will likely come down when the infection is under control. If not he might have to increase his glimepiride. But I would be concerned increasing this at this time. We did discuss that he needs to contact his physician for follow-up this coming week to make sure he is getting better. While he is here, I will get his sugar down, give him some IV fluids and antibiotics. All questions were answered Lab Data Attestation: I reviewed the patient's lab results. Labs: Laboratory Results - last 24 hr 02/09/22 02/09/22 02/09/22 17:02 17:02 17:05 WBC 7.7 RBC 4.12 L Hgb 12.1 L Hct 37.2 L MCV 90.3 MCH 29.4 MCHC 32.5 RDW Std Deviation 43.8 RDW Coeff of Riddhi 13.3 Plt Count 260 MPV 9.9 Immature Gran % (Auto) 0.400 Neut % (Auto) 75.1 H Lymph % (Auto) 15.8 L [place] % (Auto) 6.0 Eos % (Auto) 2.4 Baso % (Auto) 0.3 Absolute Neuts (auto) 5.8 Absolute Lymphs (auto) 1.21 Nucleated RBC % 0 Sodium 137 Potassium 4.0 Chloride 104 Carbon Dioxide 25.0 Anion Gap 8 BUN 25 H Creatinine 1.72 H Estim Creat Clear Calc 34.24 Est GFR (MDRD) Af Amer 50 L Est GFR (MDRD) Non-Af 41 L BUN/Creatinine Ratio 14.5 Glucose 404 H Calcium 9.0 Urine Color Straw Urine Clarity Cloudy Urine pH 7.0 Ur Specific [place] 1.010 Urine Protein 100 H Urine Glucose (UA) 1000 H Urine Ketones Negative Urine Occult Blood 25 H Urine Nitrite Negative Urine Bilirubin Negative Urine Urobilinogen Normal Ur Leukocyte Esterase 500 H Urine RBC 0 SEEN Urine WBC >100 SEEN Ur Squamous Epith Cells 0-5 SEEN Urine Bacteria 1+ Urine Mucus 0 SEEN Discharge Plan Triage Chief Complaint: Complaint ED Provider: Virgil Chirinos Dx/Rx/DC Orders Clinical Impression: Urinary tract infection, Hyperglycemia Instructions: ED Diabetic Hyperglycemia, ED Bladder Infection, Male (Adult) Prescriptions: New cephalexin [cephalexin] 500 mg capsule 500 mg PO Q6 Qty: 40 0RF No Action lisinopril 20 mg tablet 20 mg PO DAILY Label Comments: take 1 tablet by mouth once daily metformin 500 mg tablet 1,000 mg PO BID Label Comments: take 2 tablets by mouth twice a day with meals glimepiride 4 mg tablet 4 mg PO DAILY Label Comments: take 1 tablet by mouth once daily WITH BREAKFAST carvedilol 3.125 mg Tablet 3.125 mg PO BID Qty: 60 1RF oxycodone 5 mg tablet 5 mg PO Q6H PRN (Reason: pain) 3 Days Qty: 12 0RF acetaminophen 325 mg tablet 650 mg PO Q6H PRN (Reason: pain) Qty: 30 0RF aspirin 81 mg tablet,chewable 81 mg PO BID Qty: 56 0RF Primary Care Provider: Hitesh Brown Referrals: Hitesh Brown DO [Primary Care Provider] - 5-7 Days Disposition Disposition: Home, Self Care
[2022-02-09 17:13] LABS: Absolute Lymphocyte Count 1.21 X10^3/uL (0.83-4.51); Absolute Neutrophil Count 5.8 X10^3/uL (2.0-7.7); Basophil# 0.02 X10^3/uL; Basophil% 0.3 % (0-1); Eosinophil# 0.18 X10^3/uL; Eosinophils% 2.4 % (0-5); Hematocrit 37.2 % (40-54); Hemoglobin 12.1 g/dL (13.0-16.5); Lymphocyte # 1.21 X10^3/ul (0.83-4.51); Lymphocyte % 15.8 % (19-41); Mean Corp Hgb Conc 32.5 g/dL (32-36); Mean Corpuscular Hgb 29.4 pg (27.0-32.0); Mean Corpuscular Volume 90.3 fL (80-94); Mean Platelet Vol. 9.9 fl (6.2-12.0); Monocyte# 0.46 X10^3/uL; NRBC Flagged by Analyzer 0 % (0-5); Neutrophil # 5.75 X10^3/uL (2.7-7.7); Neutrophil % 75.1 % (47-70); Platelet Count 260 K/mm3 (150-450); RBC Distribution Width CV 13.3 % (11.6-14.6); RBC Distribution Width SD 43.8 fl (35.1-43.9); Red Blood Count 4.12 M/mm3 (4.6-6.2); White Blood Count 7.7 K/mm3 (4.4-11.0)
[2022-02-09 17:15] LABS: Mucous, Urine 0 SEEN /hpf (<or=2+); Red Blood Cells-Urine 0 SEEN /hpf (0-5)
[2022-02-09 17:18] LABS: Color, Urine Straw (Yellow); Glucose, Dipstick 1000 mg/dl (Normal); Ketone-Dipstick Negative (Negative); Leukocyte Esterase-Dipstick 500 /ul (Negative); Nitrite-Dipstick Negative (Negative); Occult Blood-Urine 25 /ul (Negative); Protein-Dipstick 100 mg/dl (Negative); Urine Bilirubin Dipstick Negative (Negative); Urine Clarity Cloudy (Clear); Urine Urobilinogen Normal (Normal)
[2022-02-09 17:27] LABS: White Blood Cells >100 SEEN /hpf (0-5)
[2022-02-09 17:28] LABS: Squamous Epithelial Cells - UA 0-5 SEEN /hpf (0-5)
[2022-02-09 17:29] LABS: Anion Gap 8 (5-15); BUN 25 mg/dL (7-18); BUN/Creat Ratio 14.5 RATIO (10-20); Chloride 104 mmol/L (98-107); Creatinine, Serum 1.72 mg/dL (0.70-1.30); EST Glomerular Filtration Rate 41 mL/min (>60); Est Glom Filt Rate - Afr Amer 50 mL/min (>60); Estimated Creatinine Clearance 34.24 ml/min; Glucose 404 mg/dL (74-106); Sodium Level 137 mmol/L (136-145)
[2022-02-09 17:29] LABS: Bacteria 1+ /hpf (None Seen)
[2022-02-09] MEDS: Insulin Lispro 100 UNIT/ML INSULN.PEN 8 UNIT SC (18:09)
[2022-02-09] MEDS: Ceftriaxone 1 GM/50 ML BAG IV (18:09)
[2022-02-09] MEDS: 0.9% Normal Saline 1,000 ML 999 ML IV (18:09)
[2022-02-09 18:50] VITALS: BP 154/87; PULSE 87; RESP 16; O2SAT 97
[2022-02-09 19:10] LABS: Bedside Glucose 370 mg/dL (74-106)
[2022-02-09] MEDS: metFORMIN HCl 1,000 MG Tablet 1000 MG PO (19:36)
[2022-02-09] MEDS: Insulin Lispro 100 UNIT/ML INSULN.PEN 6 UNIT SC (19:38)
[2022-02-09 20:01] LABS: Bedside Glucose 263 mg/dL (74-106)
[2022-02-09 20:26] VITALS: BP 173/90; PULSE 66; RESP 15; O2SAT 100
[2022-02-09 20:56] LABS: Bedside Glucose 195 mg/dL (74-106)
== END 2022-02-09 21:07 | disposition home or self-care (01) ==
PROVIDERS: Emergency Provider Emergency Medicine; PCP Family Medicine; Visit Provider Emergency Medicine
DX: N39.0 Urinary tract infection, site not specified (principal); E11.65 Type 2 diabetes mellitus with hyperglycemia; Z79.84 Long term (current) use of oral hypoglycemic drugs; I10 Essential (primary) hypertension; R32 Unspecified urinary incontinence; R30.0 Dysuria; R35.0 Frequency of micturition
CPT/HCPCS: 80048; 81001; 82962; 85025; 87077; 87086; 87088; 87186; 96361; 96365; 99284; J7030; J7050

== ENCOUNTER 2022-02-24 16:41 | Emergency (ER) | payer MEDICARE, SELFPAY ==
[2022-02-24 16:42] VITALS: BP 179/79; PULSE 108; RESP 16; TEMP 36.4; O2SAT 98; BMI 30.4
--- NOTE | 2022-02-24 18:19 | CT_ITS ---
STUDY: CT BRAIN WITHOUT CONTRAST REASON FOR EXAM: Male, 76 years old. Head trauma. RADIATION DOSAGE (If Supplied By Facility): CTDIvol = ( 44.99 ) mGy, DLP = ( 765.18 ) mGycm TECHNIQUE: Transaxial CT imaging of the brain was performed without administration of intravenous contrast material. Individualized dose optimization techniques were used for this CT. COMPARISON: No relevant priors. FINDINGS: Normal soft tissue structures. Normal calvarium. There is mild cerebral atrophy with widening of the extra-axial spaces and ventricular dilatation. There are areas of decreased attenuation within the white matter tracts of the supratentorial brain, consistent with microvascular disease changes. Normal basal ganglia and thalami. Normal brainstem. There is mild cerebellar atrophy. There is no intracranial hemorrhage. There are no findings of an acute ischemic infarction. Normal visualized paranasal sinuses. CT/Brain/Head without Contrast IMPRESSION: Chronic involutional changes without evidence of acute intracranial or calvarial abnormality. Electronically Signed: Saul Rachel DO at 19:03 EST ,
--- NOTE | 2022-02-24 18:20 | EX.ED.GENINJ ---
HPI History of Present Illness Chief Complaint: Fall Narrative Narrative: 76-year-old male presenting after mechanical she was trying to grab his walker and fell forward hitting the left side of his head and his left knee. He was able to get up and ambulate after this. He states he does have some mild pain in the left knee. He notes some bruising and a superficial abrasion on the left knee. He states is not dizzy, lightheaded, nauseous. He does not have a headache. He is not on any blood thinners. He denies neck pain. [facility] Medical History Closed left hip fracture Diabetes Hypertension Urethral stricture unspecified Home Medications lisinopril 20 mg tablet 20 mg PO DAILY HTN 12/27/20 [History Last Taken 08/29/21] glimepiride 4 mg tablet 4 mg PO DAILY diabetes 08/30/21 [History Last Taken 08/29/21] metformin 500 mg tablet 1,000 mg PO BID DM 08/30/21 [History Last Taken 08/29/21] acetaminophen 325 mg tablet 650 mg PO Q6H PRN pain #30 tabs 09/03/21 [Rx Last Taken Unknown] aspirin 81 mg chewable tablet 81 mg PO BID #56 tabs 09/03/21 [Rx Last Taken Unknown] carvedilol 3.125 mg tablet 3.125 mg PO BID #60 tabs 09/03/21 [Rx Last Taken Unknown] oxycodone 5 mg tablet 5 mg PO Q6H PRN pain 3 days #12 tabs 09/03/21 [Rx Last Taken Unknown] cephalexin 500 mg capsule 500 mg PO Q6 #40 caps 02/09/22 [Rx Last Taken Unknown] Allergy/AdvReac Type Severity Reaction Status Date / Time codeine AdvReac Upset Verified 02/24/22 16:44 Stomach Family History Other Diabetes Hyperlipidemia Social History household members: other details: Resides at the [facility] Smoking Status: Never smoker substance use type: does not use ROS ROS ED Constitutional Constitutional ED: Denies chills or fever(s) Eyes Eyes: Denies change in vision ENT ENT ED: Denies rhinorrhea or sore throat Cardiovascular Cardiovascular: Denies chest pain or palpitations Respiratory/Chest Respiratory/Chest: Denies cough or dyspnea Gastrointestinal Gastrointestinal: Denies abdominal pain or constipation Genitourinary Genitourinary ED: Denies dysuria or hematuria Musculoskeletal Musculoskeletal: Denies arthralgias or back pain Integumentary Reports Abrasions; Denies abscess Neurologic Neurologic: Denies headache(s) or paresthesias Psychiatric Psychiatric: Denies anxiety or depression EXAM Physical Exam Const Vital Signs: 02/24/22 16:42 02/24/22 18:29 Temperature 97.6 F L Temperature Source Temporal Pulse Rate 108 H Respiratory Rate 16 Respiratory Effort Normal Blood Pressure 179/79 H Blood Pressure Mean 112 Pulse Ox 98 Oxygen Delivery Method Room Air Positive well nourished General Appearance ED: NAD ALLY Reports TM's clear atraumatic Tympanic Membrane ED: Yes TM's clear bilateral Eyes PERRL and EOMs intact bilaterally Chest Wall inspection of chest normal Resp normal respiratory effort and clear to auscultation bilaterally GI normal to inspection, nondistended, normoactive bowel sounds Back/Spine normal to inspection and no thoracic nor lumbar tenderness Extremity Extremity Narrative: Mild bruising and swelling to the left patella. There is a superficial abrasion below the patella. No obvious deformity. Left knee extensor mechanism is intact. Neuro oriented x3 and CN's II-XII intact bilaterally Sensorium / Orientation: alert Motor Exam: strength 5/5 throughout Psych mental status grossly normal Skin no rashes or lesions noted MDM MDM MDM Narrative Medical decision making narrative: Patient presenting after mechanical fall. He states he struck his head on the left. He has no neurologic signs or symptoms. There is no evidence of trauma to the side of the head. He is not having any dizziness, lightheadedness, nausea, vomiting. He does not have any neck pain. He also complains of bruising and swelling to the left knee. I obtained a CT of the brain which is negative for acute intercranial findings. X-ray of the right knee shows degenerative changes but no acute fracture on my interpretation. Radiologist interprets this and agrees. Given this I feel the patient can be discharged home. Return precautions were discussed. Impression: 1. Mechanical fall 2. Closed head injury 3. Left knee contusion Lab Data Attestation: I reviewed the patient's lab results. Radiography Diagnostic Testing: Clinical Impression(s) from Imaging Studies Brain CT 02/24/22 18:19 IMPRESSION: Chronic involutional changes without evidence of acute intracranial or calvarial abnormality. Electronically Signed: Saul Rachel DO at 19:03 EST Reading Location ID and State: [address] [place] [address] Tel [phone], Service support , Knee X-Ray 02/24/22 19:05 IMPRESSION: 1. Degenerative changes knee. Question CPPD. 2. Medullary hakan in the distal femoral shaft. 3. No acute fracture or dislocation. Electronically Signed: Saul Rachel DO at 19:30 EST Reading Location ID and State: [address] [place] [address] Tel [phone], Service support , Discharge Plan Triage Chief Complaint: Fall ED Provider: Hernesto Vences Dx/Rx/DC Orders Prescriptions: No Action lisinopril 20 mg tablet 20 mg PO DAILY Label Comments: take 1 tablet by mouth once daily metformin 500 mg tablet 1,000 mg PO BID Label Comments: take 2 tablets by mouth twice a day with meals glimepiride 4 mg tablet 4 mg PO DAILY Label Comments: take 1 tablet by mouth once daily WITH BREAKFAST carvedilol 3.125 mg Tablet 3.125 mg PO BID Qty: 60 1RF oxycodone 5 mg tablet 5 mg PO Q6H PRN (Reason: pain) 3 Days Qty: 12 0RF acetaminophen 325 mg tablet 650 mg PO Q6H PRN (Reason: pain) Qty: 30 0RF aspirin 81 mg tablet,chewable 81 mg PO BID Qty: 56 0RF cephalexin [cephalexin] 500 mg capsule 500 mg PO Q6 Qty: 40 0RF Primary Care Provider: Hitesh Brown Referrals: Hitesh Brown DO [Primary Care Provider] -
--- NOTE | 2022-02-24 19:05 | RAD_ITS ---
STUDY: X-RAY - LEFT KNEE REASON FOR EXAM: Male, 76 years old. Fell getting his walker. Hit left side of the head. Left knee pain. TECHNIQUE: 4 view(s) of the knee. COMPARISON: None. FINDINGS: There is an intramedullary hakan in the distal femur with 2 transfixing screws through the distal diametaphysis. Normal visualized proximal tibia and fibula. Normal proximal tibiofibular articulation. There is no acute fracture, dislocation or destructive osseous pathology. There is mild degenerative arthrosis of the medial femorotibial compartment. There is mild degenerative arthrosis of the lateral femorotibial compartment. Calcifications within the lateral meniscus. 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 There are atherosclerotic calcifications. RAD/Knee 4 or More Views IMPRESSION: 1. Degenerative changes knee. Question CPPD. 2. Medullary hakan in the distal femoral shaft. 3. No acute fracture or dislocation. Electronically Signed: Saul Rachel DO at 19:30 EST Reading Location ID and State: [address] [facility] Tel [phone], Service support ,
== END 2022-02-24 20:08 | disposition home or self-care (01) ==
PROVIDERS: Emergency Provider Student in an Organized Health Care Education/Training Program; PCP Family Medicine; Visit Provider Student in an Organized Health Care Education/Training Program
DX: S09.90XA Unspecified injury of head, initial encounter (principal); E11.9 Type 2 diabetes mellitus without complications; S80.02XA Contusion of left knee, initial encounter; I10 Essential (primary) hypertension; W19.XXXA Unspecified fall, initial encounter
CPT/HCPCS: 70450; 73564; 99284

== ENCOUNTER 2022-05-24 21:54 | Emergency (ER) | payer MEDICARE, SELFPAY ==
[2022-05-24 21:56] VITALS: BP 164/87; PULSE 81; RESP 18; TEMP 36.9; O2SAT 96; BMI 25.2
--- NOTE | 2022-05-24 22:33 | EKG12_ITS ---
Test Reason : DYSRHYTHMIA Blood Pressure : / mmHG Vent. Rate : 063 BPM Atrial Rate : 063 BPM P-R Int : 184 ms QRS Dur : 068 ms QT Int : 422 ms P-R-T Axes : 078 017 033 degrees QTc Int : 431 ms Sinus rhythm with occasional Premature ventricular complexes Low voltage QRS (Limb Leads) Confirmed by JOHNNIE KEN, ANNA ([id number]), news editor SARAH THOMAS ([id number]) on 05/27/2022 1:53:46 PM Referred By: JOSE Confirmed By:ANNA BLAIR MD
--- NOTE | 2022-05-24 22:34 | EX.ED.DYSGE1 ---
HPI History of Present Illness Chief Complaint: Hyperglycemia Narrative Narrative: 77-year-old male past medical history of hypertension, diabetes, on oral medications presents via EMS from the [facility] with elevated blood sugars. He states he saw his primary care physician the other day and they took him off his metformin that he was taking 500 mg twice a day because of my kidneys. He states he started having problems with. He told the RN that they switched his medications but he does not know what he is taking. He denies any nausea or vomiting. No abdominal pain. He states that his glucometer, which she calls a thermometer was not working correctly. EMS noted his blood sugar to be elevated at 491. [facility] Medical History Closed left hip fracture Diabetes Hypertension Urethral stricture unspecified Home Medications lisinopril 20 mg tablet 20 mg PO DAILY HTN 12/27/20 [History Last Taken 08/29/21] glimepiride 4 mg tablet 4 mg PO DAILY diabetes 08/30/21 [History Last Taken 08/29/21] metformin 500 mg tablet 1,000 mg PO BID DM 08/30/21 [History Last Taken 08/29/21] acetaminophen 325 mg tablet 650 mg PO Q6H PRN pain #30 tabs 09/03/21 [Rx Last Taken Unknown] aspirin 81 mg chewable tablet 81 mg PO BID #56 tabs 09/03/21 [Rx Last Taken Unknown] carvedilol 3.125 mg tablet 3.125 mg PO BID #60 tabs 09/03/21 [Rx Last Taken Unknown] oxycodone 5 mg tablet 5 mg PO Q6H PRN pain 3 days #12 tabs 09/03/21 [Rx Last Taken Unknown] cephalexin 500 mg capsule 500 mg PO Q6 #40 caps 02/09/22 [Rx Last Taken Unknown] Allergy/AdvReac Type Severity Reaction Status Date / Time codeine AdvReac Upset Verified 05/24/22 21:59 Stomach Family History Other Diabetes Hyperlipidemia Social History household members: other details: Resides at the [facility] Smoking Status: Never smoker substance use type: does not use ROS ROS ED ROS Narrative Constitutional: No fever, no chills. Elevated blood sugar. HEENT: No sore throat. No neck pain. No loss of vision. No rhinorrhea. Cardiovascular: No chest pain. No palpitations. No pedal edema. Respiratory: No cough, no shortness of breath. Abdominal: No abdominal pain. No nausea. No vomiting. Genitourinary: No dysuria. No hematuria. Kidney problems. Musculoskeletal: No myalgias. No arthralgias. Neurologic: No headaches. No dizziness. No lightheadedness. Skin: No rash. No change in color. Psychiatric: No depression. No anxiety. EXAM Physical Exam Narrative Exam Narrative: Afebrile. Vital signs noted. Slightly disheveled. HEENT: Normocephalic. Atraumatic. PERRL, EOMI. Neck soft and supple. No point tenderness or step off. Cardiovascular: Regular rate and rhythm. No murmurs, rubs, or gallops appreciated. Respiratory: No tachypnea. Lungs clear to auscultation bilaterally. Gastrointestinal: Abdomen soft, nontender, with normoactive bowel sounds. No rebound or guarding. Neurological: Awake. Alert. Oriented. Nonfocal, nonlateralizing. Skin: No rash. Normal color. No pallor. Musculoskeletal: No pedal edema. Full range of motion extremities. Const Vital Signs: 05/24/22 21:56 05/25/22 00:44 Temperature 98.4 F Temperature Source Temporal Pulse Rate 81 77 Respiratory Rate 18 15 Blood Pressure 164/87 H 163/77 H Blood Pressure Mean 112 105 Pulse Ox 96 99 Oxygen Delivery Method Room Air Room Air MDM [facility] MDM Narrative Medical decision making narrative: As the patient does not take insulin, he may have hyperosmolar nonketotic elevation of his blood sugar versus hyperglycemia. DKA rule out was obtained. He was administered 2 L of normal saline intravenously. I will check his acetone level, CBC, and CMP. Patient is without complaints, he denies any chest pain, shortness of breath, abdominal pain, or nausea and vomiting. I reviewed his laboratory work. CBC shows normal white count of 7.2. Hemoglobin stable at 11, platelet count normal at 206. Sodium is low at 134, but this may be secondary to elevated glucose of 515. He has an elevated BUN and chronically elevated creatinine, 2.16 today. Serum ketones are negative. He has a normal anion gap additionally of 9. I reviewed his prior ED record. He was here in 2021, presenting from the [facility] with elevated glucose, but he had a urinary tract infection at that time. Once again, he could not remember what he takes. I will lower his blood sugar with 2 L of IV fluids, and recheck to make sure that his glucose level is coming down. In discussion with the RN, she checked his blood sugar after 1 L, and it was 403. He will receive a second liter. As long as it continues to come down. I do feel that he would be able to be discharged back to the [facility], to take his diabetic medication as previously directed. After his second liter bolus blood sugar is 342. I do feel that this has been a significant drop in his glucose. It is listed that he takes glimepiride 4 mg daily, and he states that he was taken off metformin altogether because of his chronic kidney injury. He also stated that his primary care provider, Dr. Brown, had told him that he may need to start insulin for his diabetes to protect his kidneys. At this point in time, I do feel he can be discharged safely home to follow-up with his primary care physician for blood sugar management and the possibility of starting him on insulin. Return instructions to the emergency department were reviewed. Disposition is discharged home in stable condition. History & Record Review Discussion w/independent historian: Patient Additional record(s) reviewed:: Prior ED visit and Prior labs Lab Data Attestation: I reviewed the patient's lab results. Labs: Laboratory Results - last 24 hr 05/24/22 05/24/22 05/24/22 21:43 21:43 21:43 WBC Cancelled Corrected WBC Cancelled RBC Cancelled Hgb Cancelled Hct Cancelled MCV Cancelled MCH Cancelled MCHC Cancelled RDW Std Deviation Cancelled RDW Coeff of Riddhi Cancelled Plt Count Cancelled MPV Cancelled Immature Gran % (Auto) Cancelled Neut % (Auto) Cancelled Lymph % (Auto) Cancelled Cuming % (Auto) Cancelled Eos % (Auto) Cancelled Baso % (Auto) Cancelled Absolute Neuts (auto) Cancelled Absolute Lymphs (auto) Cancelled Total Counted Cancelled Neutrophils % (Manual) Cancelled Band Neutrophils % Cancelled Lymphocytes % (Manual) Cancelled Monocytes % (Manual) Cancelled Eosinophils % (Manual) Cancelled Basophils % (Manual) Cancelled Metamyelocytes % Cancelled Myelocytes % Cancelled Promyelocytes % Cancelled Blast Cells % Cancelled Plasma Cell % (Manual) Cancelled Other Cells % Cancelled Nucleated RBC % Cancelled Nucleated RBCs/100 WBC Cancelled Differential Comment Cancelled Diff Path Review Cancelled Hypersegmented Neuts Cancelled Atypical Lymphocytes Cancelled Reactive Lymphocytes Cancelled Smudge Cells Cancelled Toxic Granulation Cancelled Toxic Vacuolation Cancelled Dohle Bodies Cancelled Andrew Rods Cancelled Platelet Estimate Cancelled Plt Morphology Comment Cancelled RBC Morphology Cancelled Polychromasia Cancelled Hypochromasia Cancelled Poikilocytosis Cancelled Basophilic Stippling Cancelled Anisocytosis Cancelled Microcytosis Cancelled Macrocytosis Cancelled Spherocytes Cancelled Sickle Cells Cancelled Target Cells Cancelled Tear Drop Cells Cancelled Ovalocytes Cancelled Stomatocytes Cancelled Kwok-Crouse Bodies Cancelled Derwood Cells Cancelled Bite Cells Cancelled Crenated Cell Cancelled Acanthocytes (Spur) Cancelled Rouleaux Cancelled Schistocytes Cancelled Sodium 134 L Potassium 4.4 Chloride 100 Carbon Dioxide 25.0 Anion Gap 9 BUN 29 H Creatinine 2.16 H Estim Creat Clear Calc 26.83 Est GFR (MDRD) Af Amer 38 L Est GFR (MDRD) Non-Af 32 L BUN/Creatinine Ratio 13.4 Glucose 515 H* Calcium 9.3 Total Bilirubin 0.30 AST 15 ALT 23 Alkaline Phosphatase 192 H Total Protein 6.7 Albumin 3.1 L Globulin 3.6 Albumin/Globulin Ratio 0.9 Urine Color Urine Clarity Urine pH Ur Specific Marathon Urine Protein Urine Glucose (UA) Urine Ketones Urine Occult Blood Urine Nitrite Urine Bilirubin Urine Urobilinogen Ur Leukocyte Esterase Urine RBC Urine WBC Ur Squamous Epith Cells Urine Bacteria Urine Mucus Acetone Level NEGATIVE POC Glucose 05/24/22 05/24/22 05/24/22 22:20 22:48 23:15 WBC 7.6 Corrected WBC RBC 3.73 L Hgb 11.2 L Hct 34.3 L MCV 92.0 MCH 30.0 MCHC 32.7 RDW Std Deviation 44.2 H RDW Coeff of Riddhi 13.1 Plt Count 206 MPV 10.1 Immature Gran % (Auto) 0.300 Neut % (Auto) 71.1 H Lymph % (Auto) 18.3 L Cuming % (Auto) 6.7 Eos % (Auto) 3.2 Baso % (Auto) 0.4 Absolute Neuts (auto) 5.4 Absolute Lymphs (auto) 1.39 Total Counted Neutrophils % (Manual) Band Neutrophils % Lymphocytes % (Manual) Monocytes % (Manual) Eosinophils % (Manual) Basophils % (Manual) Metamyelocytes % Myelocytes % Promyelocytes % Blast Cells % Plasma Cell % (Manual) Other Cells % Nucleated RBC % 0 Nucleated RBCs/100 WBC Differential Comment Diff Path Review Hypersegmented Neuts Atypical Lymphocytes Reactive Lymphocytes Smudge Cells Toxic Granulation Toxic Vacuolation Dohle Bodies Andrew Rods Platelet Estimate Plt Morphology Comment RBC Morphology Polychromasia Hypochromasia Poikilocytosis Basophilic Stippling Anisocytosis Microcytosis Macrocytosis Spherocytes Sickle Cells Target Cells Tear Drop Cells Ovalocytes Stomatocytes Kwok-Crouse Bodies Bryce Cells Bite Cells Crenated Cell Acanthocytes (Spur) Rouleaux Schistocytes Sodium Potassium Chloride Carbon Dioxide Anion Gap BUN Creatinine Estim Creat Clear Calc Est GFR (MDRD) Af Amer Est GFR (MDRD) Non-Af BUN/Creatinine Ratio Glucose Calcium Total Bilirubin AST ALT Alkaline Phosphatase Total Protein Albumin Globulin Albumin/Globulin Ratio Urine Color Yellow Urine Clarity Clear Urine pH 6.5 Ur Specific Marathon 1.010 Urine Protein 100 H Urine Glucose (UA) 1000 H Urine Ketones Negative Urine Occult Blood Negative Urine Nitrite Negative Urine Bilirubin Negative Urine Urobilinogen Normal Ur Leukocyte Esterase 25 H Urine RBC 0 SEEN Urine WBC 5-10 SEEN Ur Squamous Epith Cells 0 SEEN Urine Bacteria 0 SEEN Urine Mucus 0 SEEN Acetone Level POC Glucose 460 H* 05/25/22 05/25/22 00:10 01:05 WBC Corrected WBC RBC Hgb Hct MCV MCH MCHC RDW Std Deviation RDW Coeff of Riddhi Plt Count MPV Immature Gran % (Auto) Neut % (Auto) Lymph % (Auto) Cuming % (Auto) Eos % (Auto) Baso % (Auto) Absolute Neuts (auto) Absolute Lymphs (auto) Total Counted Neutrophils % (Manual) Band Neutrophils % Lymphocytes % (Manual) Monocytes % (Manual) Eosinophils % (Manual) Basophils % (Manual) Metamyelocytes % Myelocytes % Promyelocytes % Blast Cells % Plasma Cell % (Manual) Other Cells % Nucleated RBC % Nucleated RBCs/100 WBC Differential Comment Diff Path Review Hypersegmented Neuts Atypical Lymphocytes Reactive Lymphocytes Smudge Cells Toxic Granulation Toxic Vacuolation Dohle Bodies Andrew Rods Platelet Estimate Plt Morphology Comment RBC Morphology Polychromasia Hypochromasia Poikilocytosis Basophilic Stippling Anisocytosis Microcytosis Macrocytosis Spherocytes Sickle Cells Target Cells Tear Drop Cells Ovalocytes Stomatocytes Kwok-Crouse Bodies Derwood Cells Bite Cells Crenated Cell Acanthocytes (Spur) Rouleaux Schistocytes Sodium Potassium Chloride Carbon Dioxide Anion Gap BUN Creatinine Estim Creat Clear Calc Est GFR (MDRD) Af Amer Est GFR (MDRD) Non-Af BUN/Creatinine Ratio Glucose Calcium Total Bilirubin AST ALT Alkaline Phosphatase Total Protein Albumin Globulin Albumin/Globulin Ratio Urine Color Urine Clarity Urine pH Ur Specific Marathon Urine Protein Urine Glucose (UA) Urine Ketones Urine Occult Blood Urine Nitrite Urine Bilirubin Urine Urobilinogen Ur Leukocyte Esterase Urine RBC Urine WBC Ur Squamous Epith Cells Urine Bacteria Urine Mucus Acetone Level POC Glucose 403 H 342 H Discharge Plan Triage Chief Complaint: Hyperglycemia ED Provider: Jeremy Vasquez Dx/Rx/DC Orders Clinical Impression: Hyperglycemia, Type 2 diabetes mellitus, CKD (chronic kidney disease) Instructions: ED Chronic Kidney Disease (CKD), ED Diabetic Hyperglycemia Prescriptions: No Action lisinopril 20 mg tablet 20 mg PO DAILY Label Comments: take 1 tablet by mouth once daily metformin 500 mg tablet 1,000 mg PO BID Label Comments: take 2 tablets by mouth twice a day with meals glimepiride 4 mg tablet 4 mg PO DAILY Label Comments: take 1 tablet by mouth once daily WITH BREAKFAST carvedilol 3.125 mg Tablet 3.125 mg PO BID Qty: 60 1RF oxycodone 5 mg tablet 5 mg PO Q6H PRN (Reason: pain) 3 Days Qty: 12 0RF acetaminophen 325 mg tablet 650 mg PO Q6H PRN (Reason: pain) Qty: 30 0RF aspirin 81 mg tablet,chewable 81 mg PO BID Qty: 56 0RF cephalexin [cephalexin] 500 mg capsule 500 mg PO Q6 Qty: 40 0RF Primary Care Provider: Hitesh Brown Referrals: Hitesh Brown DO [Primary Care Provider] - 05/27/22 Activity Restrictions/Additional Instructions: Continue your medication as previously prescribed. Talk to your primary care provider about you starting insulin for better control of your blood sugar as he had mentioned previously. Disposition Disposition: Home, Self Care
[2022-05-24 22:40] LABS: Bedside Glucose 460 mg/dL (74-106)
[2022-05-24] MEDS: 0.9% Normal Saline 1,000 ML 999 ML IV (22:47)
[2022-05-24 22:57] LABS: Bacteria 0 SEEN /hpf (None Seen); Mucous, Urine 0 SEEN /hpf (<or=2+); Red Blood Cells-Urine 0 SEEN /hpf (0-5); Squamous Epithelial Cells - UA 0 SEEN /hpf (0-5)
[2022-05-24 22:59] LABS: Color, Urine Yellow (Yellow); Glucose, Dipstick 1000 mg/dl (Normal); Ketone-Dipstick Negative (Negative); Leukocyte Esterase-Dipstick 25 /ul (Negative); Nitrite-Dipstick Negative (Negative); Occult Blood-Urine Negative /ul (Negative); Protein-Dipstick 100 mg/dl (Negative); Urine Bilirubin Dipstick Negative (Negative); Urine Clarity Clear (Clear); Urine Urobilinogen Normal (Normal); Urine pH 6.5 (5.0 - 8.0)
[2022-05-24 23:21] LABS: Absolute Lymphocyte Count 1.39 X10^3/uL (0.83-4.51); Absolute Neutrophil Count 5.4 X10^3/uL (2.0-7.7); Basophil# 0.03 X10^3/uL; Basophil% 0.4 % (0-1); Eosinophil# 0.24 X10^3/uL; Eosinophils% 3.2 % (0-5); Hematocrit 34.3 % (40-54); Hemoglobin 11.2 g/dL (13.0-16.5); Lymphocyte # 1.39 X10^3/ul (0.83-4.51); Lymphocyte % 18.3 % (19-41); Mean Corp Hgb Conc 32.7 g/dL (32-36); Mean Platelet Vol. 10.1 fl (6.2-12.0); Monocyte# 0.51 X10^3/uL; Monocyte% 6.7 % (0-10); NRBC Flagged by Analyzer 0 % (0-5); Neutrophil % 71.1 % (47-70); Platelet Count 206 K/mm3 (150-450); RBC Distribution Width CV 13.1 % (11.6-14.6); RBC Distribution Width SD 44.2 fl (35.1-43.9); Red Blood Count 3.73 M/mm3 (4.6-6.2); White Blood Count 7.6 K/mm3 (4.4-11.0)
[2022-05-24 23:21] LABS: White Blood Cells 5-10 SEEN /hpf (0-5)
[2022-05-24 23:28] LABS: ALB/GLOB Ratio 0.9 RATIO (0.9-2.4); AST(SGOT) 15 U/L (15-37); Alanine Aminotransfer ALT/SGPT 23 U/L (16-61); Albumin, Serum 3.1 g/dL (3.2-5.0); Alkaline Phosphatase 192 U/L (45-117); Anion Gap 9 (5-15); BUN 29 mg/dL (7-18); BUN/Creat Ratio 13.4 RATIO (10-20); Calcium,Total 9.3 mg/dL (8.5-10.1); Chloride 100 mmol/L (98-107); Creatinine, Serum 2.16 mg/dL (0.70-1.30); EST Glomerular Filtration Rate 32 mL/min (>60); Est Glom Filt Rate - Afr Amer 38 mL/min (>60); Estimated Creatinine Clearance 26.83 ml/min; Globulin 3.6 g/dL (2.2-4.2); Glucose 515 mg/dL (74-106); Potassium 4.4 mmol/L (3.5-5.1); Protein, Total 6.7 g/dL (6.4-8.2); Sodium Level 134 mmol/L (136-145)
[2022-05-25] MEDS: 0.9% Normal Saline 1,000 ML 999 ML IV (00:07)
[2022-05-25 00:30] LABS: Bedside Glucose 403 mg/dL (74-106)
[2022-05-25 00:44] VITALS: BP 163/77; PULSE 77; RESP 15; O2SAT 99
[2022-05-25 01:26] LABS: Bedside Glucose 342 mg/dL (74-106)
[2022-05-25 01:36] VITALS: BP 177/85; PULSE 76; RESP 17; O2SAT 98
[2022-05-25 07:00] VITALS: BP 118/78; PULSE 78; RESP 16; O2SAT 98
== END 2022-05-25 09:50 | disposition home or self-care (01) ==
PROVIDERS: Emergency Provider Emergency Medicine; PCP Family Medicine; Visit Provider Emergency Medicine
DX: E11.65 Type 2 diabetes mellitus with hyperglycemia (principal); E11.22 Type 2 diabetes mellitus with diabetic chronic kidney disease; N18.9 Chronic kidney disease, unspecified; Z79.84 Long term (current) use of oral hypoglycemic drugs; I12.9 Hypertensive chronic kidney disease with stage 1 through stage 4 chronic kidney disease, or unspecified chronic kidney disease
CPT/HCPCS: 80053; 81001; 82009; 82962; 85025; 93005; 96360; 96361; 99285; J7030; A4216

== ENCOUNTER 2022-05-25 18:22 | Emergency (ER) | payer MEDICARE, SELFPAY ==
[2022-05-25 18:26] VITALS: BP 216/95; PULSE 78; RESP 14; TEMP 36.6; O2SAT 99; BMI 24.1
--- NOTE | 2022-05-25 18:29 | ED.RN ---
PER EMS, CALL [facility] WHEN PT READY FOR D/C AND THE [facility] WILL SEND SOMEONE TO PICK HIM UP.
[2022-05-25 18:31] VITALS: BP 186/82
[2022-05-25 19:11] LABS: Bedside Glucose 359 mg/dL (74-106)
[2022-05-25] MEDS: Insulin Lispro 100 UNIT/ML INSULN.PEN 8 UNIT SC (19:18)
[2022-05-25 19:31] LABS: Bedside Glucose 384 mg/dL (74-106)
--- NOTE | 2022-05-25 20:09 | EX.ED.DYSGE1 ---
HPI History of Present Illness Chief Complaint: Hyperglycemia Informant: patient Onset/Context/Timing Onset: Today Current Severity: Mild Maximum Severity: Mild Narrative Narrative: 77-year-old male diabetic with hypertension. Recently taken off his metformin. His blood sugar was elevated at the [facility] he is currently staying at and the same in emergency department. He was actually seen here either earlier today or late last night was worked up at that time his blood sugar at that time was around 500. He was not in DKA. He denies any other complaints. The only reason he was sent up today is because his blood sugar was over 300 and that is the [facility] protocol. He is staying at the [facility]. Prior similar symptoms: Yes Recent Illness/Hospitalization: No [facility] Medical History Closed left hip fracture Diabetes Hypertension Urethral stricture unspecified Home Medications lisinopril 20 mg tablet 20 mg PO DAILY HTN 12/27/20 [History Last Taken 08/29/21] glimepiride 4 mg tablet 4 mg PO DAILY diabetes 08/30/21 [History Last Taken 08/29/21] metformin 500 mg tablet 1,000 mg PO BID DM 08/30/21 [History Last Taken 08/29/21] acetaminophen 325 mg tablet 650 mg PO Q6H PRN pain #30 tabs 09/03/21 [Rx Last Taken Unknown] aspirin 81 mg chewable tablet 81 mg PO BID #56 tabs 09/03/21 [Rx Last Taken Unknown] carvedilol 3.125 mg tablet 3.125 mg PO BID #60 tabs 09/03/21 [Rx Last Taken Unknown] oxycodone 5 mg tablet 5 mg PO Q6H PRN pain 3 days #12 tabs 09/03/21 [Rx Last Taken Unknown] cephalexin 500 mg capsule 500 mg PO Q6 #40 caps 02/09/22 [Rx Last Taken Unknown] Allergy/AdvReac Type Severity Reaction Status Date / Time codeine AdvReac Upset Verified 05/24/22 21:59 Stomach Family History Other Diabetes Hyperlipidemia Social History household members: other details: Resides at the [facility] Smoking Status: Never smoker substance use type: does not use ROS ROS ED ROS Narrative Denies nausea vomiting or diarrhea. Denies recent illness. Review of Systems ROS Unobtainable: Denies due to encephalopathy Constitutional Constitutional ED: Denies chills or fever(s) Eyes Eyes: Denies blurry vision ENT ENT ED: Denies ear pain Cardiovascular Cardiovascular: Denies chest pain Respiratory/Chest Respiratory/Chest: Denies cough or dyspnea Gastrointestinal Gastrointestinal: Denies abdominal pain Genitourinary Genitourinary ED: Denies dysuria or hematuria Musculoskeletal Musculoskeletal: Denies arthralgias Integumentary Denies abscess Neurologic Neurologic: Denies headache(s) Psychiatric Psychiatric: Denies anxiety Endocrine Endocrinology: Denies cold intolerance Hematologic/Lymphatic Hematologic/Lymphatic: Reports none Allergic/Immunologic Allergic/Immunologic ED: Denies mouth swelling or tongue swelling EXAM Physical Exam Narrative Exam Narrative: 77-year-old male no acute distress. Vital signs stable afebrile. H EENT exam unremarkable. Neck nontender. Lungs clear to auscultation bilaterally. Heart regular rhythm no murmur. Abdomen soft nontender. Moving all 4 extremities nontender. No edema. Neurologically he is awake and alert with no focal motor deficits. Const Vital Signs: 05/25/22 18:26 05/25/22 18:30 05/25/22 18:31 Temperature 98 F Temperature Source Temporal Pulse Rate 78 Respiratory Rate 14 Respiratory Effort Normal Non-Labored Blood Pressure 216/95 H 186/82 H Blood Pressure Mean 135 116 Pulse Ox 99 Oxygen Delivery Method Room Air Positive well nourished and well developed; Negative for obese, cachectic, contractures or unkempt General Appearance ED: well developed and NAD; Negative for unkempt, cachectic, contractures, cyanotic, diaphoretic or pallor Nutritional Appearance: Negative for cachectic or obese HEENT Reports moist mucous membranes; Denies dry mucous membranes Negative for trauma or tenderness Mouth ED: No dry mucous membranes Mouth: No dry mucous membranes Eyes PERRL and EOMs intact bilaterally General Eye ED: Negative for pale conjunctiva or scleral icterus Neck no lymphadenopathy, supple and no JVD General: Negative for tenderness Lymph Lymphatic: Negative for other Chest Wall inspection of chest normal and palpation of chest normal Resp normal respiratory effort and clear to auscultation bilaterally Effort and Inspection: Negative for retractions Auscultation: Negative for rales, rhonchi or wheezes Cardio regular rate, regular rhythm, S1 normal heart sound, S2 normal heart sound and no murmurs Palpation: Negative for palpable S3 Rate: Negative for bradycardia Rhythm: Negative for abnormal rhythm GI normal to inspection, nondistended, normoactive bowel sounds, non-tender, non-distended and no masses Inspection: Negative for abdominal distention Auscultation: normoactive bowel sounds Palpation: soft; Negative for tender Back/Spine no CVA tenderness General Back: Negative for CVA tenderness Cervical Spine: Negative for cervical spine tenderness Thoracic Spine / Upper Back: Negative for thoracic spinal tenderness Lumbar Spine / Lower Back: Negative for lumbar spinal tenderness Neuro oriented x3 and CN's II-XII intact bilaterally Sensorium / Orientation: alert; Negative for orientation impaired, lethargic or stuporous Motor Exam: strength 5/5 throughout Psych mental status grossly normal Appearance: Negative for unkempt Attitude: No agitated Mood & Affect: Negative for depressed, anxious or tearful Skin no rashes or lesions noted and no wounds General Skin Exam: Negative for elasticity normal, jaundice or pallor Lesions: No lesion noted Rashes: No rashes noted Trauma: Negative for abrasion Wounds: Negative for wounds noted MDM MDM MDM Narrative Medical decision making narrative: 77-year-old male diabetic hyperglycemia. Initial blood sugars were 359 and 384. He will be given 8 units of insulin and his blood sugar rechecked. He had labs done last night which I have reviewed. They were basically unremarkable. I do not think they need to be repeated. He clinically looks well. He has no other complaints. Clinically I do not think he is in DKA. Repeat blood sugar at 835 was 269. It is improving. He will be discharged back to [facility]. Lab Data Labs: Laboratory Results - last 24 hr 05/25/22 05/25/22 18:49 19:09 POC Glucose 359 H 384 H Differential Diagnosis Differential Diagnosis: Hyperglycemia versus DKA. Clinically I think is just hyperglycemia from his diabetes. Discharge Plan Triage Chief Complaint: Hyperglycemia ED Provider: Power Becerra Dx/Rx/DC Orders Clinical Impression: Hyperglycemia Instructions: ED Diabetic Hyperglycemia Prescriptions: No Action lisinopril 20 mg tablet 20 mg PO DAILY Label Comments: take 1 tablet by mouth once daily metformin 500 mg tablet 1,000 mg PO BID Label Comments: take 2 tablets by mouth twice a day with meals glimepiride 4 mg tablet 4 mg PO DAILY Label Comments: take 1 tablet by mouth once daily WITH BREAKFAST carvedilol 3.125 mg Tablet 3.125 mg PO BID Qty: 60 1RF oxycodone 5 mg tablet 5 mg PO Q6H PRN (Reason: pain) 3 Days Qty: 12 0RF acetaminophen 325 mg tablet 650 mg PO Q6H PRN (Reason: pain) Qty: 30 0RF aspirin 81 mg tablet,chewable 81 mg PO BID Qty: 56 0RF cephalexin [cephalexin] 500 mg capsule 500 mg PO Q6 Qty: 40 0RF Primary Care Provider: Hitesh Brown Referrals: Hitesh Brown DO [Primary Care Provider] - As soon as possible Activity Restrictions/Additional Instructions: Plenty of water. Watch her blood sugars closely. Follow-up with your primary care physician. Disposition Disposition: Home, Self Care
[2022-05-25 20:46] VITALS: BP 155/69; O2SAT 98
[2022-05-25 20:56] LABS: Bedside Glucose 269 mg/dL (74-106)
== END 2022-05-25 21:27 | disposition home or self-care (01) ==
PROVIDERS: Emergency Provider Emergency Medicine; PCP Family Medicine; Visit Provider Emergency Medicine
DX: E11.65 Type 2 diabetes mellitus with hyperglycemia (principal); I10 Essential (primary) hypertension
CPT/HCPCS: 82962; 99285

== ENCOUNTER 2022-06-06 21:19 | Emergency (ER) | payer MEDICARE, SELFPAY ==
[2022-06-06 21:21] VITALS: BP 151/70; PULSE 88; RESP 18; TEMP 37.8; O2SAT 97; BMI 25.2
[2022-06-06 21:24] VITALS: BP 151/70; PULSE 88; RESP 18; TEMP 37.8; O2SAT 97
--- NOTE | 2022-06-06 21:49 | EDS_ITS ---
HPI HPI - URI History of Present Illness Chief Complaint: Weakness Detail of Chief Complaint: Cough and fever. Informant: patient Onset/Context/Timing Onset: Today and Hours Context: Gradual Onset Timing: Continuous Current Severity: Mild Maximum Severity: Mild Associated Symptoms Associated Symptoms: Positive for Nasal Congestion and Nonproductive cough; Negative for Nausea, Vomiting, Diarrhea or Shortness of Breath Narrative Narrative: 77-year-old male denies any past medical history but he is listed that he is diabetic. Also history of hypertension.. Currently lives at [facility]. Said he developed a fever today and was sent of the emergency department for evaluation. He only states that he has a cold. Nonproductive cough. Denies any dysuria. Thinks he is currently on an antibiotic that was prescribed 2 weeks ago he is unsure the name of the antibiotic. Thinks it was prescribed for possible UTI. Prior similar symptoms: Yes Recent Illness/Hospitalization: No ROS ROS ED ROS Narrative Nonproductive cough. Fever today. No trouble breathing. No abdominal pain. Denies any dysuria. Review of Systems ROS Unobtainable: Denies due to encephalopathy Constitutional Constitutional ED: Reports fever(s); Denies chills ENT ENT ED: Denies ear pain or sore throat Cardiovascular Cardiovascular: Denies chest pain or palpitations Respiratory/Chest Respiratory/Chest: Reports cough; Denies dyspnea Gastrointestinal Gastrointestinal: Denies abdominal pain, constipation, diarrhea, melena, nausea or vomiting Genitourinary Genitourinary ED: Denies dysuria or hematuria Musculoskeletal Musculoskeletal: Denies arthralgias Integumentary Denies abscess Neurologic Neurologic: Denies headache(s) Psychiatric Psychiatric: Denies anxiety or depression Endocrine Endocrinology: Denies cold intolerance Hematologic/Lymphatic Hematologic/Lymphatic: Denies easy bleeding Allergic/Immunologic Allergic/Immunologic ED: Denies mouth swelling or tongue swelling [facility] Medical History Closed left hip fracture Diabetes Hypertension Urethral stricture unspecified Home Medications lisinopril 20 mg tablet 20 mg PO DAILY HTN 12/27/20 [History Last Taken 08/29/21] metformin 500 mg tablet 1,000 mg PO BID DM 08/30/21 [History Last Taken 08/29/21] acetaminophen 325 mg tablet 650 mg PO Q6H PRN pain #30 tabs 09/03/21 [Rx Last Taken Unknown] aspirin 81 mg chewable tablet 81 mg PO BID #56 tabs 09/03/21 [Rx Last Taken Unknown] carvedilol 3.125 mg tablet 3.125 mg PO BID #60 tabs 09/03/21 [Rx Last Taken Unknown] oxycodone 5 mg tablet 5 mg PO Q6H PRN pain 3 days #12 tabs 09/03/21 [Rx Last Taken Unknown] cephalexin 500 mg capsule 500 mg PO Q6 #40 caps 02/09/22 [Rx Last Taken Unknown] Allergy/AdvReac Type Severity Reaction Status Date / Time codeine AdvReac Upset Verified 05/24/22 21:59 Stomach Family History Other Diabetes Hyperlipidemia Social History household members: other details: Resides at the [facility] Smoking Status: Never smoker substance use type: does not use EXAM Physical Exam Narrative Exam Narrative: 77-year-old male vital signs are stable he is a low-grade temperature 100.1. Does not look septic or toxic. He is in no distress. Pulse ox 97% on room air no hypoxia. H EENT exam unremarkable. TMs normal. Posterior pharynx unremarkable. Moist with membranes. Neck nontender no lymphadenopathy. No meningismus. Lungs clear to auscultation bilaterally. Heart regular rhythm rate about 90 no murmur. Abdomen soft nontender normal bowel sounds no peritoneal signs. Moving all 4 extremities. Calves are nontender without edema or cords. He has chronic venous stasis changes lower extremities. Back nontender. Neurologically is awake and alert. Answering questions following commands. Const Vital Signs: 06/06/22 21:21 06/06/22 21:25 06/06/22 21:24 Temperature 100.1 F H 100.1 F H Temperature Source Oral Oral Pulse Rate 88 88 Respiratory Rate 18 18 Respiratory Pattern Normal Blood Pressure 151/70 H 151/70 H Blood Pressure Mean 97 97 Pulse Ox 97 97 Oxygen Delivery Method Room Air Room Air Positive well nourished and well developed; Negative for obese, cachectic or contractures General Appearance ED: well developed and NAD; Negative for cachectic, con tractures, cyanotic, diaphoretic or pallor Nutritional Appearance: Negative for cachectic or obese HEENT Reports moist mucous membranes; Denies dry mucous membranes normocephalic and atraumatic; Negative for scalp tenderness Face and Sinus: Negative for sinus tenderness Mouth ED: No dry mucous membranes Mouth: No dry mucous membranes Teeth and Gingiva: Negative for caries Throat: posterior oropharynx normal; Negative for tonsils abnormal Eyes PERRL and EOMs intact bilaterally General Eye ED: Negative for pale conjunctiva or scleral icterus Neck no lymphadenopathy, supple, no meningeal signs and no JVD General: Negative for anterior neck swelling or lymphadenopathy Resp normal respiratory effort and clear to auscultation bilaterally Effort and Inspection: Negative for retractions Auscultation: Negative for rales, rhonchi or wheezes Cardio S1 normal heart sound, S2 normal heart sound and no murmurs Rate: regular rate Rhythm: regular rhythm GI non-tender, non-distended and no masses Inspection: Negative for abdominal distention Palpation: soft; Negative for tender or guarding Back/Spine no CVA tenderness and normal ROM General Back: Negative for CVA tenderness Cervical Spine: Negative for cervical spine tenderness Thoracic Spine / Upper Back: Negative for thoracic spinal tenderness Lumbar Spine / Lower Back: Negative for lumbar spinal tenderness Sacrum: Negative for tenderness Extremity normal to inspection and full ROM Extremity Narrative: Chronic venous stasis changes. No cellulitis. General Extremety ED: Negative for cyanosis or tenderness General Extremity: Negative for cyanosis Neuro oriented x3 Sensorium / Orientation: alert, oriented to person, oriented to place and oriented to time; Negative for orientation impaired, lethargic or stuporous Motor Exam: strength 5/5 throughout Psych mental status grossly normal Appearance: Negative for other Attitude: No agitated Mood & Affect: Negative for depressed, anxious or tearful Skin General Skin Exam: Negative for jaundice or pallor Lesions: no lesions Rashes: no rashes MDM MDM MDM Narrative Medical decision making narrative: 77-year-old male sent to the emergency department from [facility] for a low- grade fever 100.1. Only complaint is a nonproductive cough. Does not look se ptic or toxic. IV, labs, chest x-ray COVID and influenza will be obtained. Tylenol for his fever. Repeat exam patient is doing well at 11:13 PM. Repeat temperature is 99 orally. His exam is unchanged. His abdomen is benign. Clinically he states he feels well. We have gone over all his test results. He is unable to produce any urine and the nurses were unable to obtain any catheter. He denies having any urinary symptoms. He will be discharged back to the [facility]. Tylenol for fever. He will not be started on any antibiotics at this time. Treated as a viral syndrome. History & Record Review Discussion w/independent historian: Patient Lab Data Attestation: I reviewed the patient's lab results. Lab results narrative: CBC shows a white count 9.6. H&H 11.2 and 33. Platelets 235. Electrolytes show a gap of 7 BUN 26 creatinine 1.52. Glucose 156. Lactic acid is normal at 0.9. Chest x-ray shows no acute process. Chronic changes. COVID and influenza are both negative. These are his baseline labs he is a chronic anemia and chronic renal insufficiency. His creatinine is actually better than its been recently. Labs: Laboratory Results - last 24 hr 06/06/22 06/06/22 06/06/22 21:14 21:14 21:56 WBC 9.6 RBC 3.70 L Hgb 11.2 L Hct 33.2 L MCV 89.7 MCH 30.3 MCHC 33.7 RDW Std Deviation 43.1 RDW Coeff of Riddhi 13.1 Plt Count 235 MPV 10.2 Immature Gran % (Auto) 0.300 Neut % (Auto) 84.6 H Lymph % (Auto) 6.5 L Gladwin % (Auto) 6.8 Eos % (Auto) 1.5 Baso % (Auto) 0.3 Absolute Neuts (auto) 8.1 H Absolute Lymphs (auto) 0.62 L Nucleated RBC % 0 Sodium 140 Potassium 3.6 Chloride 111 H Carbon Dioxide 22.0 Anion Gap 7 BUN 26 H Creatinine 1.52 H Estim Creat Clear Calc 38.13 Est GFR (MDRD) Af Amer 57 L Est GFR (MDRD) Non-Af 47 L BUN/Creatinine Ratio 17.1 Glucose 156 H Lactic Acid 0.9 Calcium 9.0 Radiography Chest X-Ray - ED: 2 View, Read by ED Physician, Read by Radiologist, Heart, Lungs, Mediastinum, Bony Structures, No Acute Disease and Chronic Changes Diagnostic Testing: Clinical Impression(s) from Imaging Studies Chest X-Ray 06/06/22 22:05 IMPRESSION: Old granulomatous disease. No acute cardiopulmonary pathology. Electronically Signed: Darrius Weiner MD at 22:27 EDT , Chest x-ray, 2 views, AP and lateral, interpreted both by myself and radiologist shows no acute process. Chronic changes. Discharge Plan Triage Chief Complaint: Weakness ED Provider: Power Becerra Dx/Rx/DC Orders Clinical Impression: Viral syndrome, Fever, History of diabetes mellitus Instructions: ED Fever Control (Adult), ED Viral Syndrome (Adult) Prescriptions: No Action lisinopril 20 mg tablet 20 mg PO DAILY Label Comments: take 1 tablet by mouth once daily metformin 500 mg tablet 1,000 mg PO BID Label Comments: take 2 tablets by mouth twice a day with meals carvedilol 3.125 mg Tablet 3.125 mg PO BID Qty: 60 1RF oxycodone 5 mg tablet 5 mg PO Q6H PRN (Reason: pain) 3 Days Qty: 12 0RF acetaminophen 325 mg tablet 650 mg PO Q6H PRN (Reason: pain) Qty: 30 0RF aspirin 81 mg tablet,chewable 81 mg PO BID Qty: 56 0RF cephalexin [cephalexin] 500 mg capsule 500 mg PO Q6 Qty: 40 0RF Primary Care Provider: Hitesh Brown Referrals: Hitesh Brown DO [Primary Care Provider] - 3-5 Days if not improving Activity Restrictions/Additional Instructions: Plenty of fluids and rest. Tylenol for fever. Follow-up with your doctor if not improving or return if feeling worse. Disposition Disposition: Home, Self Care
[2022-06-06] MEDS: Acetaminophen 500 MG Tablet 1000 MG PO (22:01)
--- NOTE | 2022-06-06 22:05 | RAD_ITS ---
STUDY: X-RAY CHEST REASON FOR EXAM: Male, 77 years old. cough TECHNIQUE: PA and lateral COMPARISON: August 30, 2021 FINDINGS: The lungs are clear and expanded. Tiny calcified granuloma in the right lower lobe. There is no demonstrated pleural abnormality. Heart is mildly enlarged. Normal mediastinum and mercedez. Normal visualized pulmonary arteries. Mildly calcified aortic arch and descending thoracic aorta. Dorsal spine and shoulders demonstrate degenerative change. Normal visualized ribs, and clavicles. There is no demonstrated abnormality of the visualized soft tissue structures of the upper abdomen. RAD/Chest PA and Lateral IMPRESSION: Old granulomatous disease. No acute cardiopulmonary pathology. Electronically Signed: Darrius Weiner MD at 22:27 EDT ,
[2022-06-06 22:32] LABS: Anion Gap 7 (5-15); BUN 26 mg/dL (7-18); BUN/Creat Ratio 17.1 RATIO (10-20); Chloride 111 mmol/L (98-107); Creatinine, Serum 1.52 mg/dL (0.70-1.30); EST Glomerular Filtration Rate 47 mL/min (>60); Est Glom Filt Rate - Afr Amer 57 mL/min (>60); Estimated Creatinine Clearance 38.13 ml/min; Glucose 156 mg/dL (74-106); Potassium 3.6 mmol/L (3.5-5.1); Sodium Level 140 mmol/L (136-145)
[2022-06-06 22:33] LABS: Absolute Lymphocyte Count 0.62 X10^3/uL (0.83-4.51); Absolute Neutrophil Count 8.1 X10^3/uL (2.0-7.7); Basophil# 0.03 X10^3/uL; Basophil% 0.3 % (0-1); Eosinophil# 0.14 X10^3/uL; Eosinophils% 1.5 % (0-5); Hematocrit 33.2 % (40-54); Hemoglobin 11.2 g/dL (13.0-16.5); Lymphocyte # 0.62 X10^3/ul (0.83-4.51); Lymphocyte % 6.5 % (19-41); Mean Corp Hgb Conc 33.7 g/dL (32-36); Mean Corpuscular Hgb 30.3 pg (27.0-32.0); Mean Corpuscular Volume 89.7 fL (80-94); Mean Platelet Vol. 10.2 fl (6.2-12.0); Monocyte# 0.65 X10^3/uL; Monocyte% 6.8 % (0-10); NRBC Flagged by Analyzer 0 % (0-5); Neutrophil # 8.08 X10^3/uL (2.7-7.7); Neutrophil % 84.6 % (47-70); Platelet Count 235 K/mm3 (150-450); RBC Distribution Width CV 13.1 % (11.6-14.6); RBC Distribution Width SD 43.1 fl (35.1-43.9); White Blood Count 9.6 K/mm3 (4.4-11.0)
[2022-06-06 22:37] LABS: Lactic Acid 0.9 mmol/L (0.4-1.9)
--- NOTE | 2022-06-06 23:14 | ED.RN ---
DR PALENCIA AWARE THAT WE ARE UNABLE TO OBTAIN URINE SPECIMAN.
[2022-06-06 23:50] VITALS: BP 143/77; TEMP 37.2
== END 2022-06-07 00:15 | disposition home or self-care (01) ==
PROVIDERS: Emergency Provider Emergency Medicine; PCP Family Medicine; Visit Provider Emergency Medicine
DX: B34.9 Viral infection, unspecified (principal); E11.9 Type 2 diabetes mellitus without complications; R50.9 Fever, unspecified; I10 Essential (primary) hypertension; Z20.822 Contact with and (suspected) exposure to COVID-19
CPT/HCPCS: 71046; 80048; 83605; 85025; 87428; 99285; A4216